=== PATIENT | female | born 1955 | race African-American/Black ===

== ENCOUNTER → 2020-12-04 15:53 | Outpatient (CLI) | payer OTHER, SELFPAY ==
--- NOTE | 2020-12-04 15:57 | DI.RAD.S_ITS ---
PROCEDURE: XR SHOULDER RT MIN 2V INDICATIONS: RIGHT SHOULDER PAIN TECHNIQUE: 3 views of the shoulder were acquired. COMPARISON: None. FINDINGS: Bones: No fractures or dislocations. No suspicious bony lesions. Visualized ribs appear intact. Moderate acromioclavicular and mild glenohumeral joint degeneration. Soft tissues: No suspicious soft tissue calcifications. IMPRESSION: Degenerative joint disease as described. Dictated by: Antonio Cee M.D. on 12/04/2020 at 17:22 Approved by: Antonio Cee M.D. on 12/04/2020 at 17:23
== END ==
PROVIDERS: PCP Registered Nurse; Referring Provider Registered Nurse; Visit Provider Registered Nurse
DX: M25.511 Pain in right shoulder (principal); M19.011 Primary osteoarthritis, right shoulder
CPT/HCPCS: 73030

== ENCOUNTER 2021-06-05 14:04 | Inpatient (IN) | payer MEDICARE, SELFPAY ==
[2021-06-05] VITALS (20 sets, daily range): BP systolic 176–260; BP diastolic 79–125; PULSE 75–89; RESP 14–24; TEMP 35.7–36.7; O2SAT 96–100; BMI 28.1; BMI 27.9
--- NOTE | 2021-06-05 | DI.ECHO.S_ITS ---
[facility] +---------+ : : [address] [place] [address] : : : : [id number] : : : : Phone: [phone]+ Echocardiogram Report + + :Name: DENISE TRAVIS Study Date: 06/06/2021 Height: 67 in : :[facility] ReadingLocation: Weight: 180 lb : : Gender: Female BSA: 1.9 m2 : :: 1955 Age: 65 yrs BP: 218/105 mmHg: :Reason For Study: ACUTE STROKE, ELEVATED TROPONIN : :Ordering Physician: RIC, : :BYRON Performed By: Hellen Ruano : :Referring: BYRON LARIOS : + + Interpretation Summary Left ventricular systolic function is normal with an estimated ejection fraction of 60 to 65% without focal wall motion abnormality. Left ventricular size is normal with moderate concentric LVH and a probable diastolic relaxation abnormality but probable normal filling pressures. The right ventricle appears normal in size and systolic function. Right ventricular systolic pressure is estimated at 29 mmHg with a CVP of 3 mmHg. There is moderate left atrial enlargement. The interatrial septum appears intact without any evidence for an interatrial shunt by Doppler interrogation and injection of saline echo contrast. There is mild tricuspid valve regurgitation but no other functional valvular abnormality. Procedure: A two-dimensional transthoracic echocardiogram with color flow and Doppler was performed. The study quality was technically adequate. There is no prior echocardiogram noted for this patient. A saline contrast injection was performed to assess for cardiac shunting. The injection was performed through an intravenous line in the right arm. The patient was in sinus rhythm with heart rates between 62-71 bpm during the exam. Left Ventricle: The left ventricle is normal in size. There is moderate concentric left ventricular hypertrophy. The ejection fraction is estimated to be 60-65%. Left ventricular systolic function appears normal without focal wall motion abnormalities. Diastolic parameters suggest a relaxation abnormality of the left ventricle, consistent with probable normal filling pressures. Right Ventricle: The right ventricle is normal in size and function. Atria: The left atrium is moderately dilated. Right atrial size is normal. The interatrial septum grossly appears intact with no obvious evidence for an atrial septal defect. Doppler interrogation and injection of saline echo contrast shows no evidence for an interatrial shunt. Bubble study was captured on image frame(s) # 74. Mitral Valve: There is mild to moderate mitral annular calcification. The mitral valve leaflets appear mildly thickened, but open well. There is trace mitral regurgitation. Aortic Valve: The aortic valve is trileaflet. The aortic valve is slightly calcified. The aortic valve opens well. There is no aortic valve stenosis. No aortic regurgitation is present. Tricuspid Valve: The tricuspid valve is normal in structure and function. There is mild tricuspid regurgitation. The right ventricular systolic pressure is estimated to be at least 29 mmHg based on an estimated right atrial pressure of 3 mm Hg. Pulmonic Valve: The pulmonic valve leaflets are thin and pliable; valve motion is normal. There is no pulmonic valvular regurgitation. Great Vessels: The aortic root is normal size. The dimensions of the ascending aorta are normal. The IVC is of normal diameter and collapses greater than 50% with a sniff. This suggests a low right atrial pressure of 3 mm Hg. Pericardium/ Pleura There is no pericardial effusion. There is no pleural effusion. MMode/2D Measurements & Calculations LVIDd: 4.3 cm LVOT diam: 2.0 cm LVIDs: 2.7 cm Ao root diam: 2.9 cm FS: 37.7 % asc Aorta Diam: 3.0 cm IVSd: 1.5 cm Ao Arch Diam (Prox Trans): 2.4 cm LVPWd: 1.4 cm LV tejada. diameter/BSA (cm/m^2): 2.2 LV sys. diameter/BSA (cm/m^2): 1.4 LA A2 area: 24.3 cm2 RA long axis: 4.9 cm LA A4 area: 22.6 cm2 RA area: 15.3 cm2 LA length (vol): 5.6 cm RA vol: 40.6 ml LA vol: 83.5 ml RA : 21.0 ml/m2 LA vol index: 43.2 ml/m2 IVC diam: 1.5 cm RVD1 (basal): 3.2 cm TAPSE: 2.6 cm Doppler Measurements & Calculations Ao V2 max: 142.6 cm/sec LVOT Max Brendon: 97.3 cm/sec Ao V2 mean: 103.8 cm/sec LV V1 max P.8 mmHg Ao max P.1 mmHg LV V1 VTI: 23.8 cm Ao mean P.8 mmHg ABUNDIO(I,D): 2.0 cm2 Ao V2 VTI: 37.9 cm ABUNDIO(V,D): 2.2 cm2 sev ratio: 0.63 ABUNDIO indexed to BSA (cm^2/m^2): 1.0 MV E max brendon: 89.8 cm/sec TR max brendon: 253.0 cm/sec MV A max brendon: 121.9 cm/sec TR max P.6 mmHg MV E/A: 0.74 PA V2 max: 79.6 cm/sec Med Peak E' Brendon: 4.5 cm/sec PA V2 mean: 58.7 cm/sec E/E' med: 20.1 PA mean P.5 mmHg Lat Peak E' Brendon: 5.2 cm/sec PA pr(Accel): 13.9 mmHg E/E' lat: 17.4 E/e' average: 18.7 MV dec time: 0.32 sec SV(LVOT): 75.2 ml Reading Physician:09:14 AM
--- NOTE | 2021-06-05 14:08 | DI.CT.S_ITS ---
PROCEDURE: CT HEAD/BRAIN WO CON INDICATIONS: Left-sided numbness with balance issues TECHNIQUE: Noncontrast 4.5 mm thick angled axial sections acquired from the foramen magnum to the vertex, with coronal and sagittal reformats. For radiation dose reduction, the following was used: automated exposure control, adjustment of mA and/or kV according to patient size. COMPARISON: [facility], CT, CT ANGIO HEAD AND NECK, 06/05/2021, 14:30. FINDINGS: Image quality: Excellent. CSF spaces: Basal cisterns are patent. No extra-axial fluid collections. Ventricles are normal in size and shape. Brain: No midline shift. No intracranial masses or hemorrhage. Figueroa-white matter interface is normal. There is a focus of low attenuation within the right frontal lobe. Skull and face: Calvarium and visualized facial bones are intact, without suspicious lesions. Sinuses: Visualized sinuses demonstrate near complete opacification of the left sphenoid sinus.. IMPRESSION: 1. No acute intracranial process. 2. Focus of low attenuation in the right frontal lobe appearing chronic. This could represent a small focus of early chronic microvascular ischemia, focus of previous infection/inflammation/ischemia, migraine sequela or less likely demyelinating disease. Dictated by: Suzy Adames M.D. on 06/05/2021 at 15:12 Approved by: Suzy Adames M.D. on 06/05/2021 at 15:14
--- NOTE | 2021-06-05 14:12 | DI.CT.S_ITS ---
PROCEDURE: CT ANGIO HEAD AND NECK INDICATIONS: L sided numbness and problems walking TECHNIQUE: After the administration of intravenous contrast, 1 mm thick sections acquired from the aortic arch through the [place]. Post-contrast 4.5 mm thick sections then re-acquired from the foramen magnum to the vertex. 3-dimensional bhjkkcb-[id number]-[id number] (MIP) and/or volume rendering reformats were acquired of the central intracranial vasculature and neck separately. COMPARISON: [facility], CT, CT HEAD/BRAIN WO CON, 06/05/2021, 14:30. FINDINGS: Image quality: Degraded by contrast bolus timing factors. BRAIN: CSF spaces: Ventricles are normal in size and shape. Basal cisterns are patent. No extra-axial fluid collections. Brain: No midline shift. No intracranial bleeds or masses. Figueroa-white matter interface appears intact. Skull and face: Calvarium and facial bones appear intact, without suspicious lesions. Orbits appear normal. Sinuses: Complete opacification of the left sphenoid sinus. Sinuses and mastoids are otherwise clear. HEAD CT ANGIOGRAPHY: Anterior circulation: Intracranial internal carotid arteries are normal in size and flow. The flow within the paired anterior cerebral arteries is normal and symmetric. The flow within the middle cerebral arteries is normal and symmetric. The anterior communicating artery is seen. No aneurysms are seen. Posterior circulation: Visualized portions of the vertebral arteries demonstrate normal caliber, and join to form a normal appearing basilar artery. Flow within the posterior cerebral arteries is normal and symmetric. No aneurysms are seen. NECK CT ANGIOGRAPHY: Carotid system: The great vessels demonstrate a conventional anatomy as they arise from the aortic arch. The origins of the common carotid arteries appear patent. The common carotid arteries demonstrate normal caliber and courses. The bifurcation regions are both widely patent. The internal carotid arteries demonstrate normal calibers and courses. Posterior circulation: The right vertebral artery is small in caliber, but is grossly patent. Left vertebral artery is dominant, and is patent. They join to form a normal appearing basilar artery. Soft tissues: Visualized neck soft tissues demonstrate no suspicious abnormalities. Bones: No suspicious bony lesions. Visualized cervical spine appears normally aligned. IMPRESSION: 1. Limited examination secondary to contrast bolus timing factors. 2. No definite acute process involving the arterial tree of the head and neck. Any quantitative measurements of stenosis were performed using NASCET criteria. Dictated by: Stephen Garcia M.D. on 06/05/2021 at 15:11 Approved by: Stephen Garcia M.D. on 06/05/2021 at 15:14
--- NOTE | 2021-06-05 14:14 | ED.GENADULT ---
HPI - General Adult General Chief complaint: Neuro Symptoms/Deficit Stated complaint: numbness on left side/difficult to walk Time Seen by Provider: 06/05/21 14:06 History of Present Illness HPI narrative: Patient is a 65-year-old female. Approximately 24 hours ago she states she was climbing some stairs in her house. She states that she felt somewhat short of breath. No chest pain. She did have to stop. States that shortly afterwards she was standing at a store. She started to feel tingling in her left hand that then moved up her left arm and then the left side of her face. She also felt very unsteady on her feet. She also had a headache. The headache improved last evening and went to bed without a headache but then had another 1 this morning. She currently does not have a headache. She states that her left side is weak to include her left arm and her left leg. The tingling in the numbness has improved somewhat but the weakness has not. She did not have chest pain. Related Data Home Medications Medication Instructions Recorded Confirmed Novolin 70/30 U-100 Insulin See Rx Instructions .ROUTE .COMPLEX 06/05/21 06/05/21 Previous Rx's Medication Instructions Recorded losartan 50 mg tablet 50 mg PO DAILY #30 tab 12/04/20 Allergies Allergy/AdvReac Type Severity Reaction Status Date / Time Penicillins Allergy Unknown Verified 06/05/21 14:18 Review of Systems Constitutional Constitutional: Reports as per HPI Eyes Eyes: Reports system reviewed and no additional complaints, except as documented ENT Ears, Nose, Mouth, and Throat: Denies sore throat Cardiovascular Cardiovascular: Reports as per HPI Respiratory Respiratory: Reports as per HPI Gastrointestinal Gastrointestinal: Reports system reviewed and no additional complaints, except as documented Genitourinary Genitourinary: Reports system reviewed and no additional complaints, except as documented Musculoskeletal Musculoskeletal: Reports as per HPI Integumentary/Breasts Skin/Breast: Reports system reviewed and no additional complaints, except as documented Neurologic Neurologic: Reports as per HPI Psychiatric Psychiatric: Reports system reviewed and no additional complaints, except as documented Endocrine Endocrine: Reports system reviewed and no additional complaints, except as documented Hematologic/Lymphatic On Anticoagulants: No Allergic/Immunologic Allergic/Immunologic: Reports system reviewed and no additional complaints, except as documented Patient History Medical History Essential hypertension Type 2 diabetes mellitus Social History Smoking Status: Never smoker Smoking Status: Never smoker Exam Initial Vital Signs Initial Vital Signs: Vital Signs Pulse Rate 82 06/05/21 14:19 Respiratory Rate 16 06/05/21 14:19 Pulse Oximetry 100 06/05/21 14:19 Const General: cooperative, comfortable, well developed and well groomed HENMT Head: normal to inspection and normocephalic Nose: external nose normal Mouth: oral mucosae normal Eyes General: appearance normal, both eyes and all related structures EOM: EOM intact bilaterally Chest Chest: normal inspection of the chest Resp Effort & Inspection: normal respiratory effort Auscultation: clear to auscultation bilaterally Cardio Rate: regular rate Rhythm: regular rhythm GI Palpation: soft Back/Spine/Pelvis Back: normal to inspection Skin General: no rashes or lesions noted Neuro General: patient alert, patient awake, patient oriented x3, moves all extremities and not confused Speech: speech normal Extrem General: normal to inspection and capillary refill normal Psych Appearance: grossly normal and well kempt Scores GCS Rienzi coma scale eye opening: Spontaneous [place] coma scale verbal response: Orientated [place] coma scale motor response: Obey commands Rien[place] coma scale total score: 15 NIH Stroke Scale Level of Conciousness: Alert, keenly responsive Ask month/age: Answers both questions correctly. Open/close eyes, close hand: Performs both tasks correctly Best gaze horizontal: Normal Visual sarmiento: No visual loss Facial palsy: Minor paralysis, flattened nasolabial fold, asymmetry on smiling Left arm drift: Drifts down, not to bed Right arm drift: No drift for full 10 sec Left leg drift: Drifts down, not to bed Right leg drift: No drift for full 5 sec Limb ataxia: Present in two limbs Sensory on face/arms/legs: Mild to moderate sensory loss, can tell touch Best language: No aphasia, normal Dysarthria: Normal Extinction or inattention: No abnormality Total NIH Stroke scale score: 6 Course Orders Ordered: ED Orders 06/05/21 14:08 CT head/brain wo con Stat EKG-12 Lead Stat 06/05/21 14:12 CT angio head and neck Stat 06/05/21 14:18 Complete Blood Count AUTO DIFF Stat Comprehensive Metabolic Panel Stat Ethanol (ETOH) Stat Lipase Stat Troponin & CK Cardiac Panel Stat 06/05/21 14:32 EKG-12 Lead Stat 06/05/21 15:09 COVID19 - ADMIT (SAND BOBBER swab/PCR) Stat 06/05/21 15:53 Urine Culture Stat Urine Microscopic Stat Discontinued Medications Aspirin (Aspirin 81 Mg Chew Tab) 324 mg PO NOW ONE Stop: 06/05/21 14:15 Last Admin: 06/05/21 14:27 Dose: 324 mg Documented by: LYNDON Labetalol HCl (Labetalol 20 Mg/4 Ml Syringe) 10 mg IV NOW ONE Stop: 06/05/21 14:37 Last Admin: 06/05/21 14:59 Dose: 10 mg Documented by: LYNDON Vital Signs Vital signs: Vital Signs - 8 hr 06/05/21 14:19 06/05/21 14:30 06/05/21 14:34 Temperature Pulse Rate 82 86 87 Respiratory Rate 16 21 20 Blood Pressure Pulse Oximetry 100 100 100 06/05/21 14:35 06/05/21 14:40 06/05/21 14:59 Temperature 98.1 F Pulse Rate 84 89 Respiratory Rate 24 18 Blood Pressure 242/118 H 260/125 H Pulse Oximetry 98 100 06/05/21 15:00 06/05/21 15:16 06/05/21 15:30 Temperature Pulse Rate 88 82 79 Respiratory Rate 15 19 15 Blood Pressure 234/108 H 208/98 H Pulse Oximetry 100 99 96 06/05/21 16:00 06/05/21 16:01 06/05/21 16:02 Temperature Pulse Rate 76 75 76 Respiratory Rate 17 18 Blood Pressure 181/86 H 181/86 H 176/79 H Pulse Oximetry 99 99 99 Medical Decision Making Medical Records Medical records reviewed: Yes I reviewed the patient's medical records. Lab Data Lab results reviewed: Yes I reviewed the patient's lab results. Result diagrams: 06/05/21 14:18 06/05/21 14:18 Labs: Lab Results 06/05/21 06/05/21 06/05/21 Range/Units 14:18 14:18 15:09 WBC 10.7 (4.5-11.0) X10^3/uL RBC 4.56 (4.0-5.2) X10^6/uL Hgb 13.5 (12.0-16.0) g/dL Hct 41.7 (36-46) % MCV 91.3 (80-100) fL MCH 29.5 (26-34) PG MCHC 32.3 (30-36) % RDW 13.3 (11.6-14.8) % Plt Count 266 (150-400) X10^3/uL Neut % (Auto) 68.4 (50-75) % Lymph % (Auto) 22.9 L (25-40) % Desha % (Auto) 6.1 (3-14) % Eos % (Auto) 2.0 (2-4) % Baso % (Auto) 0.6 (0-2) % Neut # (Auto) 7300 H (8769-2803) /uL Lymph # (Auto) 2400 (4116-4575) /uL Desha # (Auto) 700 (0-900) /uL Eos # (Auto) 200 (0-450) /uL Baso # (Auto) 100 (0-100) /uL Sodium 143 (137-145) mmol/L Potassium 4.1 (3.4-5.1) mmol/L Chloride 109 H (98-107) mmol/L Carbon Dioxide 27 (22-32) mmol/L BUN 21 H (7-17) mg/dL Creatinine 0.99 (0.52-1.04) mg/dL Estimated GFR 56.3 L (>60) mL/min BUN/Creatinine Ratio 21.2 (6-22) Glucose 218 H (80-110) mg/dL Calcium 9.9 (8.4-10.2) mg/dL Total Bilirubin 0.6 (0.2-1.3) mg/dL AST 40 H (14-36) IU/L ALT 29 (<35) IU/L Alkaline Phosphatase 203 H (38-126) U/L Total Creatine Kinase 160 H (30-135) U/L CK-MB (CK-2) 2.33 (<2.37) ng/mL CK-MB (CK-2) Rel Index 1.5 (1.5-5.0) % Troponin I 0.529 H* (0.01-0.034) ng/mL Total Protein 7.9 (6.3-8.2) g/dL Albumin 4.4 (3.5-5.0) g/dL Globulin 3.5 (1.7-4.1) g/dL Albumin/Globulin Ratio 1.3 (1.0-2.8) Lipase 54 (23-300) U/L Urine RBC (0-5/HPF) Urine WBC (0-5/HPF) Ur Squamous Epith Cells (0-5/HPF) Urine Bacteria (None) Ur Culture Indicated? Ethyl Alcohol < 10 ( - 10) mg/dL SARS-CoV-2 (PCR) Negative (Negative) 06/05/21 Range/Units 15:53 WBC (4.5-11.0) X10^3/uL RBC (4.0-5.2) X10^6/uL Hgb (12.0-16.0) g/dL Hct (36-46) % MCV (80-100) fL MCH (26-34) PG MCHC (30-36) % RDW (11.6-14.8) % Plt Count (150-400) X10^3/uL Neut % (Auto) (50-75) % Lymph % (Auto) (25-40) % Desha % (Auto) (3-14) % Eos % (Auto) (2-4) % Baso % (Auto) (0-2) % Neut # (Auto) (0556-4859) /uL Lymph # (Auto) (1292-6067) /uL Desha # (Auto) (0-900) /uL Eos # (Auto) (0-450) /uL Baso # (Auto) (0-100) /uL Sodium (137-145) mmol/L Potassium (3.4-5.1) mmol/L Chloride (98-107) mmol/L Carbon Dioxide (22-32) mmol/L BUN (7-17) mg/dL Creatinine (0.52-1.04) mg/dL Estimated GFR (>60) mL/min BUN/Creatinine Ratio (6-22) Glucose (80-110) mg/dL Calcium (8.4-10.2) mg/dL Total Bilirubin (0.2-1.3) mg/dL AST (14-36) IU/L ALT (<35) IU/L Alkaline Phosphatase (38-126) U/L Total Creatine Kinase (30-135) U/L CK-MB (CK-2) (<2.37) ng/mL CK-MB (CK-2) Rel Index (1.5-5.0) % Troponin I (0.01-0.034) ng/mL Total Protein (6.3-8.2) g/dL Albumin (3.5-5.0) g/dL Globulin (1.7-4.1) g/dL Albumin/Globulin Ratio (1.0-2.8) Lipase (23-300) U/L Urine RBC 1-5/hpf (0-5/HPF) Urine WBC 1-5/hpf (0-5/HPF) Ur Squamous Epith Cells 1-5 /hpf (0-5/HPF) Urine Bacteria Many (>30) H (None) Ur Culture Indicated? Culture not indicate Ethyl Alcohol ( - 10) mg/dL SARS-CoV-2 (PCR) (Negative) Point of Care Testing Glucose POC 217 Urine Dip Bedside Urine Glucose 100 mg/dl Bedside Urine Bilirubin - Negative Bedside Urine Ketone - Negative Urine Specific [place] 1.015 Bedside Urine Occult Blood +/- Bedside Urine pH 6.5 Bedside Urine Protein +/- 15 Bedside Urine Urobilinogen - Negative Bedside Urine Nitrite - Negative Bedside Urine Leukocytes - Negative Esterase Point of care testing: Point of Care Testing Glucose POC 217 Urine Dip Bedside Urine Glucose 100 mg/dl Bedside Urine Bilirubin - Negative Bedside Urine Ketone - Negative Urine Specific [place] 1.015 Bedside Urine Occult Blood +/- Bedside Urine pH 6.5 Bedside Urine Protein +/- 15 Bedside Urine Urobilinogen - Negative Bedside Urine Nitrite - Negative Bedside Urine Leukocytes - Negative Esterase Imaging Data CT scan - head: Radiologist's Impression: [address] [id number] Scan ReportSigned Patient: Rosanna Barlow LMR#: [id number]: 5Acct:[id number]/Sex: 65 / FDate of Service: 06/05/21Loc: EDAccession Number: [id number] Procedure: CT head/brain wo con Ordering Provider: Rafi Simon D.O. PROCEDURE: CT HEAD/BRAIN WO CON INDICATIONS: Left-sided numbness with balance issues TECHNIQUE: Noncontrast 4.5 mm thick angled axial sections acquired from the foramen magnum to the vertex, with coronal and sagittal reformats. For radiation dose reduction, the following was used: automated exposure control, adjustment of mA and/or kV according to patient size. COMPARISON: [facility], CT, CT ANGIO HEAD AND NECK, 06/05/2021, 14:30. FINDINGS: Image quality: Excellent. CSF spaces: Basal cisterns are patent. No extra-axial fluid collections. Ventricles are normal in size and shape. Brain: No midline shift. No intracranial masses or hemorrhage. Figueroa-white matter interface is normal. There is a focus of low attenuation within the right frontal lobe. Skull and face: Calvarium and visualized facial bones are intact, without suspicious lesions. Sinuses: Visualized sinuses demonstrate near complete opacification of the left sphenoid sinus.. IMPRESSION: 1. No acute intracranial process. 2. Focus of low attenuation in the right frontal lobe appearing chronic. This could represent a small focus of early chronic microvascular ischemia, focus of previous infection/inflammation/ischemia, migraine sequela or less likely demyelinating disease. Dictated by: Suzy Adames M.D. on 06/05/2021 at 15:12 Approved by: Suzy Adames M.D. on 06/05/2021 at 15:14 CTA - brain/neck: Radiologist's Impression: [address] [id number] Scan ReportSigned Patient: Rosanna Barlow LMR#: [id number]: 5Acct:[id number]/Sex: 65 / FDate of Service: 06/05/21Loc: EDAccession Number: [id number] Procedure: CT angio head and neck Ordering Provider: Rafi Simon D.O. PROCEDURE: CT ANGIO HEAD AND NECK INDICATIONS: L sided numbness and problems walking TECHNIQUE: After the administration of intravenous contrast, 1 mm thick sections acquired from the aortic arch through the [place]. Post-contrast 4.5 mm thick sections then re-acquired from the foramen magnum to the vertex. 3-dimensional dyebwwq-grfyaxgqy-fhfuwtaiax (MIP) and/or volume rendering reformats were acquired of the central intracranial vasculature and neck separately. COMPARISON: [facility], CT, CT HEAD/BRAIN WO CON, 06/05/2021, 14:30. FINDINGS: Image quality: Degraded by contrast bolus timing factors. BRAIN: CSF spaces: Ventricles are normal in size and shape. Basal cisterns are patent. No extra-axial fluid collections. Brain: No midline shift. No intracranial bleeds or masses. Figueroa-white matter interface appears intact. Skull and face: Calvarium and facial bones appear intact, without suspicious lesions. Orbits appear normal. Sinuses: Complete opacification of the left sphenoid sinus. Sinuses and mastoids are otherwise clear. HEAD CT ANGIOGRAPHY: Anterior circulation: Intracranial internal carotid arteries are normal in size and flow. The flow within the paired anterior cerebral arteries is normal and symmetric. The flow within the middle cerebral arteries is normal and symmetric. The anterior communicating artery is seen. No aneurysms are seen. Posterior circulation: Visualized portions of the vertebral arteries demonstrate normal caliber, and join to form a normal appearing basilar artery. Flow within the posterior cerebral arteries is normal and symmetric. No aneurysms are seen. NECK CT ANGIOGRAPHY: Carotid system: The great vessels demonstrate a conventional anatomy as they arise from the aortic arch. The origins of the common carotid arteries appear patent. The common carotid arteries demonstrate normal caliber and courses. The bifurcation regions are both widely patent. The internal carotid arteries demonstrate normal calibers and courses. Posterior circulation: The right vertebral artery is small in caliber, but is grossly patent. Left vertebral artery is dominant, and is patent. They join to form a normal appearing basilar artery. Soft tissues: Visualized neck soft tissues demonstrate no suspicious abnormalities. Bones: No suspicious bony lesions. Visualized cervical spine appears normally aligned. IMPRESSION: 1. Limited examination secondary to contrast bolus timing factors. 2. No definite acute process involving the arterial tree of the head and neck. Any quantitative measurements of stenosis were performed using NASCET criteria. Dictated by: Stephen Garcia M.D. on 06/05/2021 at 15:11 Approved by: Stephen Garcia M.D. on 06/05/2021 at 15:14 ECG Data Attestation: I personally reviewed and interpreted this ECG as follows: Interpretation: Sinus rhythm Ventricular rate is 78 LVH Normal axis Normal QRS QTC [address] T wave changes Patient developed chest pain in the ER Subsequent EKG Sinus rhythm Ventricular rate is 79 Normal axis Normal QRS Normal QTC Nonspecific ST T wave changes MDM Narrative Medical decision making narrative: Patient presents to the emergency department at 24 hours after the onset of her symptoms. She is outside the window for tPA. Is outside the window for any code IR. Her physical exam and CT scan today are consistent with a CVA. She was given aspirin. She was very hypertensive upon arrival. She was given 10 mg of labetalol which did improve her blood pressure however this did start to creep back up. The admitting provider was advised of this and she will address at upon arrival to the floor. Patient's head CT was read is unremarkable. I did discuss the case with tele stroke who upon reviewing the CT scan stated that he thought that potentially there was a right frontal/temporal lobe infarct that would explain the patient's symptoms today. Patient did have 1 episode of chest pain here in the ER. Initial EKG and a repeat EKG showed nonspecific changes. I did discuss this with tele stroke as well. He stated that there was not a contraindication to heparin in this individual if she needed it for another reason however there was some concern about a potential hemorrhagic conversion. I then discussed the case with Dr. soto with Cardiology. He stated that she has other presenting issues that can cause her troponin to be elevated, her elevated blood pressure, her stroke which can cause the inverted T-waves and her other presentation. Given the risk of potential hemorrhagic conversion, the lack of definitive findings consistent with ACS and the presence of conditions that could cause her symptoms we will hold on heparin for now. I did discuss the case with Dr. boyd who was on-call for Internal Medicine. Will admit for further evaluation and treatment. Discuss this admission with the patient. She expressed understanding and agreement. Critical Care Time Critical Care Time Critical Care Time: Yes Total Critical Care Time: 40 Attestation: The high probability of a clinically significant, sudden or life threatening deterioration of the cardiovascular, neurologic system(s) required my full and direct attention, intervention and personal management. The aggregate critical care time was 40 minutes. This time is in addition to time spent performing reported procedures but includes the following: [x] Data Review and interpretation [x] Patient assessment and monitoring of vital signs [x] Documentation [x] Medication orders and management Discharge Plan Departure Patient Disposition: Admitted As Inpatient Clinical Impression: Cerebrovascular accident, Elevated troponin, Hypertension, Hyperglycemia Admit Date/Time: 06/05/21 16:16 Admit Provider: Mara Boyd
[2021-06-05 14:27] LABS: Add Manual Diff / Slide Review NO; Basophils Absolute Auto 100 /uL (0-100); Basophils Percent Auto 0.6 % (0-2); Eosinophils Absolute Auto 200 /uL (0-450); Hematocrit 41.7 % (36-46); Hemoglobin 13.5 g/dL (12.0-16.0); Lymphocytes Absolute Auto 2400 /uL (1100-4500); Lymphocytes Percent Auto 22.9 % (25-40); Mean Corpuscular HGB Conc 32.3 % (30-36); Mean Corpuscular Hemoglobin 29.5 PG (26-34); Mean Corpuscular Volume 91.3 fL (80-100); Monocytes Absolute Auto 700 /uL (0-900); Monocytes Percent Auto 6.1 % (3-14); Neutrophils Absolute Auto 7300 /uL (1500-7000); Neutrophils Percent Auto 68.4 % (50-75); Platelet Count 266 X10^3/uL (150-400); Red Blood Cell Count 4.56 X10^6/uL (4.0-5.2); Red Cell Distribution Width 13.3 % (11.6-14.8); White Blood Cell Count 10.7 X10^3/uL (4.5-11.0)
[2021-06-05] MEDS: ASPIRIN 81 MG CHEW TAB 324 MG PO (14:27)
[2021-06-05 14:46] LABS: Alanine Aminotransferase 29 IU/L (<35); Albumin 4.4 g/dL (3.5-5.0); Albumin Globulin Ratio 1.3 (1.0-2.8); Alkaline Phosphatase 203 U/L (38-126); Aspartate Aminotransferase 40 IU/L (14-36); BUN Creatinine Ratio 21.2 (6-22); Bilirubin Total 0.6 mg/dL (0.2-1.3); Blood Urea Nitrogen 21 mg/dL (7-17); Calcium 9.9 mg/dL (8.4-10.2); Carbon Dioxide 27 mmol/L (22-32); Chloride 109 mmol/L (98-107); Creatine Kinase 160 U/L (30-135); Estimated Glomerular Filt Rate 56.3 mL/min (>60); Ethanol (ETOH) < 10 mg/dL; Globulin 3.5 g/dL (1.7-4.1); Glucose 218 mg/dL (80-110); Lipase 54 U/L (23-300); Potassium 4.1 mmol/L (3.4-5.1); Sodium 143 mmol/L (137-145); Total Protein 7.9 g/dL (6.3-8.2)
[2021-06-05 14:49] LABS: HEMOLYSIS 80 (0-50)
[2021-06-05] MEDS: LABETALOL 20 MG/4 ML SYRINGE 10 MG IV (14:59)
[2021-06-05 15:00] LABS: CKMB % Relative Index 1.5 % (1.5-5.0); Creatine Kinase MB 2.33 ng/mL (<2.37)
[2021-06-05 15:19] LABS: Troponin I 0.529 ng/mL (0.01-0.034)
[2021-06-05 16:07] LABS: COVID19 - ADMIT (NP swab/PCR) Negative (Negative)
[2021-06-05 16:14] LABS: RBC Urine 1-5/HPF (0-5/HPF)
[2021-06-05 16:15] LABS: Bacteria Urine Many (>30); Squamous Epithelial Cell Urine 1-5 /HPF (0-5/HPF); WBC Urine 1-5/HPF (0-5/HPF)
--- NOTE | 2021-06-05 17:57 | PM.HP.1 ---
History of Present Illness History of Present Illness Chief complaint: numbness on left side/difficult to walk Narrative: The patient is a 65-year-old female with a history of hypertension, type 2 diabetes, who was in her usual state of health until yesterday. She was going to work and noted being short of breath. The patient then noted left-sided numbness, she had numbness from her left arm up to her face, she then got up from a meeting in noted that her left leg was weak. The patient went home was not feeling well in her encouraged her to come to the hospital. She had no headache but does report some blurred vision, she had no slurred speech, no facial droop. The patient does report having substernal chest pain yesterday. She described a feeling like she had heartburn, the pain lasted about 30 minutes and then resolved. He had recurrent symptoms today which lasted about 10 minutes. It did not radiate, she had known nausea or diaphoresis. Patient does report she was somewhat lightheaded earlier but since then that has resolved. Patient was seen and evaluated in the emergency room. At the time of admission her blood pressure was 260 systolic, in addition she was found to have a troponin elevated at 0.529, EKG was unremarkable. In addition the patient had a NIH stroke scale score of 6. Her initial head CT was negative for an acute bleed. Patient was admitted to the hospital for an acute ischemic stroke. The patient currently is pain free. She continues to have numbness on the left side, but no other lateralizing neurological symptoms. Patient History Medical History Essential hypertension Type 2 diabetes mellitus Family & Social History Family History (Updated 06/05/21 @ 18:00 by Mara Boyd MD) Mother Cancer Father Cardiac arrest Safety & Behavioral: Feels Safe in Current Yes Environment Tobacco & Substance use: Smoking Status Never smoker alcohol intake frequency 0-2 drinks per day Substance Use Type does not use Meds Home Medications and Allergies Home Medications Medication Instructions Recorded Confirmed Type losartan 50 mg tablet 50 mg PO DAILY #30 tab 12/04/20 06/05/21 Rx Novolin 70/30 U-100 Insulin See Rx Instructions .ROUTE .COMPLEX 06/05/21 06/05/21 History Allergies Allergy/AdvReac Type Severity Reaction Status Date / Time Penicillins Allergy Unknown Verified 06/05/21 14:18 Review of Systems Review of Systems Narrative: 10 point review of systems is negative except as described above Exam Vital Signs (past 8 hours): - 06/05/21 14:19 06/05/21 14:30 06/05/21 14:34 Temperature Pulse Rate 82 86 87 Respiratory Rate 16 21 20 Blood Pressure Pulse Oximetry 100 100 100 06/05/21 14:35 06/05/21 14:40 06/05/21 14:59 Temperature 98.1 F Pulse Rate 84 89 Respiratory Rate 24 18 Blood Pressure 242/118 H 260/125 H Pulse Oximetry 98 100 06/05/21 15:00 06/05/21 15:16 06/05/21 15:30 Temperature Pulse Rate 88 82 79 Respiratory Rate 15 19 15 Blood Pressure 234/108 H 208/98 H Pulse Oximetry 100 99 96 06/05/21 16:00 06/05/21 16:01 06/05/21 16:02 Temperature Pulse Rate 76 75 76 Respiratory Rate 17 18 Blood Pressure 181/86 H 181/86 H 176/79 H Pulse Oximetry 99 99 99 06/05/21 16:30 06/05/21 16:37 06/05/21 16:44 Temperature Pulse Rate 77 78 77 Respiratory Rate 14 22 20 Blood Pressure 236/107 H 230/105 H Pulse Oximetry 99 99 99 Narrative Exam Narrative: Pleasant female lying in bed in no obvious distress, patient speaking in full sentences, no facial droop noted [facility] Other: HEENT: Normocephalic atraumatic, extraocular muscles are intact, oropharynx is clear, neck is supple, there is no adenopathy thyromegaly or carotid bruits Patient has normal dentition, she has moist mucous membranes Eyes Other: Extraocular muscles are intact, sclerae anicteric Neck Other: Neck is supple without thyromegaly, adenopathy, or carotid bruits Resp Other: Lungs: Clear to auscultation Cardio Other: Cardiac exam: Regular rate and rhythm normal S1-S2 with a 2/6 systolic ejection murmur GI Other: Abdomen: Soft nontender nondistended no hepatosplenomegaly Skin Other: Right upper extremities: Erythema, some abrasions over the right deltoid Neuro Other: Patient is awake and alert and answers questions appropriately. She is alert and responsive, she is able to state her age and month. Patient is able to blink eyes and squeeze hands, her extraocular moves muscle movement are intact, she has no visual field deficit, the patient has no facial asymmetry in no facial palsy. Her left arm is weaker than the right, would give her 1+ as it drips but does not hit the bed, right arm is strong, left leg same thing 1+, right leg 0, sensation she has decreased sensation over the left arm and left leg 1 point language, normal no aphasia, dysarthria, normal no dysarthria, extinction inattention, is 0 patient's NIH stroke scale score is 3 Extrem Other: No edema Psych Other: Patient's mood and affect is appropriate, she is clear thought process, no hallucinations, no delusions Objective ECG Impression: Normal sinus rhythm with nonspecific ST T wave abnormality Labs Result Diagrams: 06/05/21 14:18 06/05/21 14:18 Labs: Laboratory Results - last 24 hr 06/05/21 06/05/21 06/05/21 14:18 14:18 15:09 WBC 10.7 RBC 4.56 Hgb 13.5 Hct 41.7 MCV 91.3 MCH 29.5 MCHC 32.3 RDW 13.3 Plt Count 266 Neut % (Auto) 68.4 Lymph % (Auto) 22.9 L Aiken % (Auto) 6.1 Eos % (Auto) 2.0 Baso % (Auto) 0.6 Neut # (Auto) 7300 H Lymph # (Auto) 2400 Aiken # (Auto) 700 Eos # (Auto) 200 Baso # (Auto) 100 Sodium 143 Potassium 4.1 Chloride 109 H Carbon Dioxide 27 BUN 21 H Creatinine 0.99 Estimated GFR 56.3 L BUN/Creatinine Ratio 21.2 Glucose 218 H Calcium 9.9 Total Bilirubin 0.6 AST 40 H ALT 29 Alkaline Phosphatase 203 H Total Creatine Kinase 160 H CK-MB (CK-2) 2.33 CK-MB (CK-2) Rel Index 1.5 Troponin I 0.529 H* Total Protein 7.9 Albumin 4.4 Globulin 3.5 Albumin/Globulin Ratio 1.3 Lipase 54 Urine RBC Urine WBC Ur Squamous Epith Cells Urine Bacteria Ur Culture Indicated? Ethyl Alcohol < 10 SARS-CoV-2 (PCR) Negative 06/05/21 15:53 WBC RBC Hgb Hct MCV MCH MCHC RDW Plt Count Neut % (Auto) Lymph % (Auto) Aiken % (Auto) Eos % (Auto) Baso % (Auto) Neut # (Auto) Lymph # (Auto) Aiken # (Auto) Eos # (Auto) Baso # (Auto) Sodium Potassium Chloride Carbon Dioxide BUN Creatinine Estimated GFR BUN/Creatinine Ratio Glucose Calcium Total Bilirubin AST ALT Alkaline Phosphatase Total Creatine Kinase CK-MB (CK-2) CK-MB (CK-2) Rel Index Troponin I Total Protein Albumin Globulin Albumin/Globulin Ratio Lipase Urine RBC 1-5/hpf Urine WBC 1-5/hpf Ur Squamous Epith Cells 1-5 /hpf Urine Bacteria Many (>30) H Ur Culture Indicated? Culture not indicate Ethyl Alcohol SARS-CoV-2 (PCR) Assessment & Plan Assessment & Plan narrative: Impression 1. 65-year-old female with a history of hypertension, type 2 diabetes admitted to the hospital with left sided weakness, left-sided numbness, NIH stroke scale score of 3-6, here for probable acute ischemic stroke -head CT in the emergency department - No acute intracranial process. 2. Focus of low attenuation in the right frontal lobe appearing chronic. This could represent a small focus of early chronic microvascular ischemia, focus of previous infection/inflammation/ischemia, migraine sequela or less likely demyelinating disease - Limited examination secondary to contrast bolus timing factors. 2. No definite acute process involving the arterial tree of the head and neck -patient's NIH stroke scale score of 6 earlier now 3 suggest probable acute ischemic event -patient was markedly hypertensive on admission, that coupled with her type 2 diabetes, makes ischemic stroke highly likely -patient received aspirin in the emergency department, she will be started on a statin this evening, will hold Plavix at this time -will obtain MRI of the brain tomorrow, and cardiac echo to look for embolic focus, patient will continue on telemetry this evening looking for atrial fibrillation -will obtain PT OT and speech consultation patient has no facial weakness, will start ADA diet this evening 2 non STEMI versus type 2 myocardial infarction -patient reports chest pain, prior to admission -initial troponin elevated at 0.529 -12 lead EKG reveals sinus rhythm with nonspecific ST T wave abnormality -given patient's complaint of chest pain, risk factors, elevated troponin she will be feet treated for a NSTEMI at this time -will start IV heparin, continue aspirin, start low-dose beta-elizabeth -will obtain cardiac echo, if the patient is found to have new wall motion abnormalities consider transfer for cardiac catheterization -if echo reveals no wall motion abnormalities will obtain stress test prior to discharge 3. Hypertension -patient likely hypertensive related to her acute stroke, will allow for permissive hypertension -blood pressure goal is to keep systolic blood pressure less than 220 systolic and less than 120 diastolic -will start beta-elizabeth this evening given recent NSTEMI will hold her losartan this evening and treat blood pressure greater than 220/120 with IV labetalol 4. Type 2 diabetes -patient reports she takes a sliding scale of 70 30 twice daily -will start her on 30 units of Lantus this evening with pre meal lispro, will obtain glycohemoglobin and fasting lipid profile 5. Patient is on IV heparin and therefore will not need DVT prophylaxis, Patient indicates she is a full code will note that her record accordingly, her Garrett it is her surrogate decision maker I have utilized all available immediate resources to obtain update and review the patient's current medication
[2021-06-05 18:10] LABS: PTT Partial Thromboplastin Tim 32 SECONDS (26.4-36.2)
[2021-06-05] MEDS: INSULIN LISPRO 100 UNIT/ML 3ML VIAL SUBCUT ×2 (18:26→21:32)
[2021-06-05] MEDS: HEPARIN DRIP 25,000 UNIT/500 ML IV.SOLN 19.595 UNIT IV (18:35)
[2021-06-05] MEDS: ACETAMINOPHEN 325 MG TABLET 650 MG PO (18:50)
[2021-06-05 20:01] LABS: Hemoglobin 12.4 g/dL (12.0-16.0)
[2021-06-05 20:08] LABS: PTT Partial Thromboplastin Tim 35 SECONDS (26.4-36.2)
[2021-06-05 20:21] LABS: Hemoglobin A1C% w Est Avg Glu 10.1 % (4.0-6.0)
[2021-06-05 20:43] LABS: Troponin I 0.354 ng/mL (0.01-0.034)
[2021-06-05 20:48] LABS: Thyroid Stimulating Hormone 1.32 uIU/mL (0.47-4.68)
[2021-06-05] MEDS: INSULIN GLARGINE 100 UNIT/ML 3ML PEN 30 UNIT SUBCUT (21:33)
[2021-06-05] MEDS: METOPROLOL ER 25 MG TABLET PO (21:34)
[2021-06-05] MEDS: ATORVASTATIN 20 MG TABLET 80 MG PO (21:35)
[2021-06-06] VITALS (12 sets, daily range): BP systolic 163–217; BP diastolic 80–118; PULSE 66–78; RESP 16–17; TEMP 36.2–36.9; O2SAT 95–98
[2021-06-06] MEDS: ACETAMINOPHEN 325 MG TABLET 650 MG PO ×3 (00:41→18:11)
[2021-06-06 03:43] LABS: PTT Partial Thromboplastin Tim 48 SECONDS (26.4-36.2)
[2021-06-06] MEDS: HEPARIN 5,000 UNIT/ML VIAL 5000 UNIT IV (03:55)
--- NOTE | 2021-06-06 07:00 | DI.MRI.S_ITS ---
PROCEDURE: MR HEAD/BRAIN WO CON INDICATIONS: Previously given history of left-sided numbness and problems walking, clinical concern for stroke TECHNIQUE: This study was originally ordered as a stroke protocol. However, the patient could not tolerate the entire examination even with premedication and a noncontrast MRI was performed. Non-contrast axial T1 spin echo, axial T2 fast spin echo, sagittal and axial FLAIR, coronal T2 fast spin echo, axial gradient echo, axial diffusion and ADC through the brain. COMPARISON: [facility], CT, CT HEAD/BRAIN WO CON, 06/05/2021, 14:30. [facility], CT, CT ANGIO HEAD AND NECK, 06/05/2021, 14:30. FINDINGS: Image quality: Excellent. CSF spaces: Ventricles appear symmetric in size and shape. Basal cisterns are patent. No extra-axial fluid collections. Brain: There is a focus of abnormal diffusion-weighted signal seen within the posterior superior right frontal lobe. There is associated dark signal seen on the ADC map. There is developing T2 weighted signal seen within this region. No intracranial bleeds or mass effects. There is cerebral volume loss for age. There are periventricular and deep white matter chronic small vessel ischemic changes. Brainstem appears normal. No chronic ischemic insults. Normal intravascular flow voids are present. Note is made of a cavum septum pellucidum. When discovered in isolation, this is considered to be a developmental variant of no clinical consequence. Skull and face: Calvarial bone marrow is normal in signal. Orbits are normal. Sinuses: Sinuses and mastoids are clear. IMPRESSION: Focus of subacute infarction seen involving the posterior aspect of the right frontal lobe. Dictated by: Federico White M.D. on 06/06/2021 at 10:27 Approved by: Federico White M.D. on 06/06/2021 at 10:31
[2021-06-06 07:38] LABS: Hematocrit 36.4 % (36-46); Hemoglobin 11.9 g/dL (12.0-16.0)
[2021-06-06 07:52] LABS: Cholesterol 193 mg/dL (140-199); HDL Cholesterol 71 mg/dL (40-60); LDL Cholesterol Calculated 112 mg/dL (<100); Triglycerides 48 mg/dL (35-150)
[2021-06-06 08:11] LABS: Troponin I 0.289 ng/mL (0.01-0.034)
[2021-06-06] MEDS: METOPROLOL ER 25 MG TABLET PO ×2 (08:25→21:06)
[2021-06-06] MEDS: LOSARTAN 50 MG TABLET PO (08:25)
[2021-06-06] MEDS: ASPIRIN EC 81 MG TABLET PO (08:25)
[2021-06-06] MEDS: INSULIN LISPRO 100 UNIT/ML 3ML VIAL SUBCUT ×4 (08:26→21:07)
[2021-06-06] MEDS: LORazepam 1 MG TABLET PO (09:47)
--- NOTE | 2021-06-06 10:45 | OT.IPNOTE ---
Hold therapy as pt to get an ECHO first, and pending results may need to be transferred out. Check on pt tomorrow if still here for OT eval.
[2021-06-06 10:54] LABS: PTT Partial Thromboplastin Tim 134 SECONDS (26.4-36.2)
[2021-06-06] MEDS: LOSARTAN 50 MG TABLET 100 MG PO (13:03)
--- NOTE | 2021-06-06 13:28 | PT-IP ANOTE ---
PT on hold. pt continues to have increase BP. 205/107 this morning per nurse and BP meds were given. checked pt again and pt continues to have high BP: 168/100 despite BP meds. will f/u
--- NOTE | 2021-06-06 14:58 | PM.PN.1 ---
Subjective Subjective Interval history: The patient is a 65-year-old female with a history of hypertension type 2 diabetes who was admitted to the hospital for an acute CVA. Patient reports numbness on the left side of her face and arm has improved. She has had no further chest pain today. She remains hypertensive, however blood pressures are improving with current treatment Exam Vital Signs (past 8 hours): - 06/06/21 08:08 06/06/21 08:25 06/06/21 10:25 Temperature 97.2 F L Pulse Rate 68 66 69 Respiratory Rate 16 Blood Pressure 202/101 H 202/101 H 207/100 H Pulse Oximetry 95 06/06/21 10:28 06/06/21 11:52 06/06/21 13:03 Temperature 97.8 F Pulse Rate 69 67 Respiratory Rate 16 Blood Pressure 205/107 H 168/100 H 168/100 H Pulse Oximetry 96 Oxygen Delivery Method Room Air Oxygen Flow Rate 0 Narrative Exam Narrative: Pleasant female in no acute distress Resp Other: Lungs clear to auscultation Cardio Other: Cardiac exam: Regular rate and rhythm normal S1-S2 with a 2/6 systolic ejection murmur GI Other: Abdomen abdomen: Soft nontender nondistended Neuro Other: Nonfocal neuro exam, patient has some minimal numbness on the left side of her face arm and leg, she has a small drift of the left arm Objective ECG Impression: Echo findings:Left ventricular systolic function is normal with an estimated ejection fraction of 60 to 65% without focal wall motion abnormality. Left ventricular size is normal with moderate concentric LVH and a probable diastolic relaxation abnormality but probable normal filling pressures. The right ventricle appears normal in size and systolic function. Right ventricular systolic pressure is estimated at 29 mmHg with a CVP of 3 mmHg. There is moderate left atrial enlargement. The interatrial septum appears intact without any evidence for an interatrial shunt by Doppler interrogation and injection of saline echo contrast. There is mild tricuspid valve regurgitation but no other functional valvular abnormality. Imaging MRI - head: My impression: MRI of the brain, reveals a diffusion abnormality involving the right frontoparietal lobe consistent with acute ischemia Radiologist's impression: Focus of subacute infarction seen involving the posterior aspect of the right frontal lobe. Labs Result Diagrams: 06/06/21 06:55 06/05/21 14:18 Labs: Laboratory Results - last 24 hr 06/05/21 06/05/21 06/05/21 14:18 14:18 15:09 Hgb Hct APTT 32 Hemoglobin A1c CK-MB (CK-2) 2.33 CK-MB (CK-2) Rel Index 1.5 Troponin I 0.529 H* Triglycerides Cholesterol LDL Cholesterol, Calc HDL Cholesterol TSH Urine RBC Urine WBC Ur Squamous Epith Cells Urine Bacteria Ur Culture Indicated? SARS-CoV-2 (PCR) Negative 06/05/21 06/05/21 06/05/21 15:53 19:52 19:52 Hgb Hct APTT Hemoglobin A1c 10.1 H CK-MB (CK-2) CK-MB (CK-2) Rel Index Troponin I Triglycerides Cholesterol LDL Cholesterol, Calc HDL Cholesterol TSH 1.32 Urine RBC 1-5/hpf Urine WBC 1-5/hpf Ur Squamous Epith Cells 1-5 /hpf Urine Bacteria Many (>30) H Ur Culture Indicated? Culture not indicate SARS-CoV-2 (PCR) 06/05/21 06/05/21 06/05/21 19:52 19:52 19:52 Hgb 12.4 Hct 39.0 APTT 35 Hemoglobin A1c CK-MB (CK-2) CK-MB (CK-2) Rel Index Troponin I 0.354 H* Triglycerides Cholesterol LDL Cholesterol, Calc HDL Cholesterol TSH Urine RBC Urine WBC Ur Squamous Epith Cells Urine Bacteria Ur Culture Indicated? SARS-CoV-2 (PCR) 06/06/21 06/06/21 06/06/21 03:12 06:55 06:55 Hgb 11.9 L Hct 36.4 APTT 48 H D Hemoglobin A1c CK-MB (CK-2) CK-MB (CK-2) Rel Index Troponin I Triglycerides 48 Cholesterol 193 LDL Cholesterol, Calc 112 H HDL Cholesterol 71 H TSH Urine RBC Urine WBC Ur Squamous Epith Cells Urine Bacteria Ur Culture Indicated? SARS-CoV-2 (PCR) 06/06/21 06/06/21 06/06/21 06:55 06:55 10:15 Hgb Hct APTT Cancelled 134 H* D Hemoglobin A1c CK-MB (CK-2) CK-MB (CK-2) Rel Index Troponin I 0.289 H* Triglycerides Cholesterol LDL Cholesterol, Calc HDL Cholesterol TSH Urine RBC Urine WBC Ur Squamous Epith Cells Urine Bacteria Ur Culture Indicated? SARS-CoV-2 (PCR) [facility] Medical History Essential hypertension Type 2 diabetes mellitus Family History (Updated 06/05/21 @ 18:00 by Mara Boyd MD) Mother Cancer Father Cardiac arrest Social History household members: spouse Smoking Status: Never smoker Assessment & Plan Assessment & Plan narrative: 5-year-old female with a history of hypertension, type 2 diabetes admitted to the hospital with left sided weakness, left-sided numbness, NIH stroke scale score of 3-6, here for probable acute ischemic stroke -head CT in the emergency department - No acute intracranial process. 2. Focus of low attenuation in the right frontal lobe appearing chronic. This could represent a small focus of early chronic microvascular ischemia, focus of previous infection/inflammation/ischemia, migraine sequela or less likely demyelinating disease - Limited examination secondary to contrast bolus timing factors. 2. No definite acute process involving the arterial tree of the head and neck -patient's NIH stroke scale score of 6 earlier now 3 suggest probable acute ischemic event -patient was markedly hypertensive on admission, that coupled with her type 2 diabetes, makes ischemic stroke highly likely -patient received aspirin in the emergency department, she will be started on a statin this evening, will hold Plavix at this time -brain MRI confirmed subacute infarct involving the posterior aspect of the right frontal lobe -echo reveals no wall motion abnormalities, no embolic focus,No shunts are noted -patient will continue on aspirin, statin, losartan for blood pressure 2 non STEMI versus type 2 myocardial infarction -patient reports chest pain, prior to admission -initial troponin elevated at 0.529 -12 lead EKG reveals sinus rhythm with nonspecific ST T wave abnormality -given patient's complaint of chest pain, risk factors, elevated troponin she will be feet treated for a NSTEMI at this time -will start IV heparin, continue aspirin, start low-dose beta-elizabeth -echocardiogram reveals no wall motion abnormalities -continue IV heparin for 48 hours total, continue aspirin, continue beta-elizabeth, once patient is off the IV heparin will initiate Plavix 75 mg daily 3. Hypertension -patient likely hypertensive related to her acute stroke, will allow for permissive hypertension -blood pressure goal is to keep systolic blood pressure less than 220 systolic and less than 120 diastolic -will start beta-elizabeth this evening given recent NSTEMI will hold her losartan this evening and treat blood pressure greater than 220/120 with IV labetalol -continue losartan 100 mg daily, added metoprolol 50 b.i.d., continue IV labetalol as needed -blood pressure improving nicely 4. Type 2 diabetes -patient reports she takes a sliding scale of 70 30 twice daily -hemoglobin A1c is 10, suggesting poor glycemic control -will increase Lantus to 40 units daily, plus pre meal lispro as well -statin is added for both cerebrovascular, and cardiovascular protection -patient on ARB as well Quality VTE Deep Vein Thrombosis/Pulmonary Embolism Present on Admission: No
--- NOTE | 2021-06-06 15:21 | PC.NURSE ---
Addendum entered by Venice Erwin R.N. 06/06/21 17:20: Patient up to chair for lunch, denies pain. Tolerating diet. PTT is pending. Will continue to monitor. Call light in reach. Patient denies needs at this time. Original Note: Patient A/O x 3, up to restroom, SBA, patient denies LLE weakness, minimal drift noted in LUE, patient endorses feeling much improved since yesterday. Heparin infusing in R AC per protocol. Lungs CTA, RA, 96%. Patient remains HTN but WNL. Patient voiding in restroom, reports last BM 06/04. BT active x 4. Call light and belongings in reach.
--- NOTE | 2021-06-06 15:46 | SLP.IPNOTE ---
Order received. Saw pt in her room. She was in bed. According to nursing pt's speech, language and swallowing are good. Screened speech via conversation. No observed dysarthria or aphasia. Pt denies difficulty with sp/lang. Pt reported that she ate her breakfast without difficulty. She denied any swallowing problems, no choking or coughing. ST not indicated. Will cancel order
--- NOTE | 2021-06-06 16:05 | PT.IIE ---
Medical History (Last Reviewed 06/05/21 @ 18:00 by Mara Boyd MD) Essential hypertension Type 2 diabetes mellitus Physical Therapy Inpatient Evaluation/Re-Eval M1 PT/OT-IP Prior Functional Status Start: 06/06/21 17:19 Freq: NEEDED Status: Active Protocol: Document 06/06/21 16:05 AB (Rec: 06/06/21 17:40 AB [id number]) Medical Review Prior Functional Status Medical History Reviewed Yes Communication able to make needs known Mobility and Gait pt stated that she is independent with all mobilities and ambulation without AD Social History Household Members spouse Living Arrangements House Number of Floors (Floors) Two Floors Number of Stairs To Enter/Railing? 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 PT-IP Current Condition Start: 06/06/21 17:19 Freq: NEEDED Status: Active Protocol: Document 06/06/21 16:05 AB (Rec: 06/06/21 17:40 AB [id number]) Physical Therapy Current Condition Current Condition Evaluation Date 06/06/21 Treatment Diagnosis CVA R frontal lobe; difficulty in walking Onset Date 06/05/21 Precautions Other Precautions falls M3 PT-IP Subjective Start: 06/06/21 17:19 Freq: NEEDED Status: Active Protocol: Document 06/06/21 16:05 AB (Rec: 06/06/21 17:40 AB [id number]) Subjective Physical Therapy Visit Type Type Initial Evaluation Visit Start Time 16:05 Visit Stop Time 16:53 Total Visit Minutes 48 Notes pt on hold initially due to high BP 168/100. pt also on hold pending MRI/ECHO result. checked with nurse again to f/u with pt and BP decreased to 163/80. checked with Dr. Boyd and stated that they got MRI/ECHO result and pt is cleared to do PT. Number of DIANETIC COUNSELOR Visits 0 Physical Therapy Visit Comments Patient Comments agreed to do PT Therapy Pain Assessment Pain When Pain Assessed During Mobility Pain Present Pain Present Pain Reported Location Left Shoulder Intensity 8 Scale Used pain with shoulder abd/ extension Pain Management Techniques Distraction,Modification of Treatment M4 PT-IP Mobility and Gait Start: 06/06/21 17:19 Freq: NEEDED Status: Active Protocol: Document 06/06/21 16:05 AB (Rec: 06/06/21 17:40 AB [id number]) PT-Bed Mobility Assessment Supine to Sit Supine to Sit Standby Assistance Sit to Supine Sit to Supine Standby Assistance PT-Transfer Assessment Sit to and From Stand Sit to and from Stand Moderate Assistance,1 Person Assistance,Use of Upper Extremities Equipment Transfer Assistive Device Gait Belt,Front Wheeled Walker Orthotic/Prosthetic Devices or Brace: No Transfers Transfer Destination Chair Transfer Technique Stand Step Pivot Transfer Ability Level of Assist Moderate Assistance,Maximum Assistance,1 Person Assistance ,Use of Upper Extremities Comments Mobility Comments BP: 191/96 but pt wanting to move and get out of bed. pt completed supine to sit SBA. able to sit on EOB SBA. completed sit to stand mod A and cues. ambulated in room using FWW mod to max A with (+ ) LOB x 3 with on incidence of increase lateral trunk LOB to the L and needed mod A to recover. and (+) L knee buckling x 4 requiring max A for recovery and PT stabilizing L knee at the same time. pt ambulated back to EOB. requested to sit up on chair. completed step transfer using FWW mod A and max cues. positioned pt on chair. call light and table within reach. informed pt and spouse regarding acute rehab recommendation. pt stated that she will think about it and stated that they are planning to go out of town in 1 week 1/2 . informed pt that it is still their decision and informed pt and spouse regarding benefit of acute rehab. also informed pt and spouse that at this time, pt is not safe to go home with incidences of L knee buckling and LOB. informed spouse regarding caregiver training when appropriate. also informed pt and spouse that pt needs to be more stable for stair climbing training. Gait Assessment Gait Gait Assistance Required: Minimum Assistance,Moderate Assistance,1 Person Assist Distance (Feet) 20 Able to Maintain Weight Bearing Status Yes During Gait Assistive Devices Assistive Device Gait Belt,Front Wheeled Walker Orthotic/Prosthetic Devices or Brace: No Gait Deviations General Gait Pattern Step-to Gait Factors Limiting Gait Function Factors Limiting Gait Function Decreased Activity Tolerance, Decreased Strength,Difficulty Following Directions,Pain,Poor Balance,Poor Safety Awareness Comments Gait Comments pls refer to mobility section for details PT-Balance Assessment Sitting Balance and Reactions Static Sitting Balance Ability Good Dynamic Sitting Balance Ability Good Standing Balance and Reactions Static Standing Balance Ability Poor Dynamic Standing Balance Ability Poor Device Used FWW M5 PT-IP Objective Assessments Start: 06/06/21 17:19 Freq: NEEDED Status: Active Protocol: Document 06/06/21 16:05 AB (Rec: 06/06/21 17:40 AB [id number]) Orientation Orientation/Cognition Level of Alertness Alert Orientation Name,Place,Situation Safety Awareness Decreased Safety Awareness Gross Range of Motion Lower Extremity ROM Assessment Within Functional Limits Strength Lower Extremity Strength Assessment Left Impaired Hip 3+/5 Knee 3+/5 M6 PT-IP Treatment Start: 06/06/21 17:19 Freq: NEEDED Status: Active Protocol: Document 06/06/21 16:05 AB (Rec: 06/06/21 17:40 AB [id number]) Physical Therapy Treatment Education Education Provided Safety M7 PT-IP Assessment and Plan Start: 06/06/21 17:19 Freq: NEEDED Status: Active Protocol: Document 06/06/21 16:05 AB (Rec: 06/06/21 17:40 AB [email or web address]) PT Summary Assessment and Plan Potential Rehabilitation Potential Good Status of Condition at Evaluation Evolving Summary Impairments Pain,ROM,Strength,Balance, Coordination,Sensation,Tone, Cognition,Bed Mobility, Transfers,Gait,Activity Tolerance Assessment Summary pt requiring mod to max A for mobility using FWW and has (+) LOB and L knee buckling during ambulation. Recommending acute rehab at this time but pt is hesistant and stated that she will think about it. pt and spouse are aware of safety and recommendations. will conduct caregiver training when appropriate for safe d/c if pt goes home and will need either HHPT or outpt PT depending on progress with assistance level and stability . will continue to assess progress. Goals Bed Mobility Goal Independent Transfer Goal Standby Assistance,Front Wheeled Walker Gait Goal Standby Assistance,Front Wheel Walker Gait Distance 200 Other Goals ambulation using FWW mod I 250 ft up/down 8 steps 1 rail SBA Days to Meet Goals 10 Frequency of Treatment Frequency Of Treatment Once a Day Treatment Plan Physical Therapy Treatment Plan Bed Mobility Training,Transfer Training,Gait Training, Therapeutic Exercise,Balance Retraining,Discharge Planning, Neuromuscular Re-ed, Coordination Retraining,Manual Therapy Precautions Other Precautions falls, BP Recommendations To Nursing Amount of Assist Needed 1 Person Assist Discharge Recommendations PT Discharge Recommendations Acute Rehab Equipment Needed for Home Before FWW if pt goes home Discharge Transportation Needs at Discharge Private Vehicle,Wheelchair/ Cabulance
--- NOTE | 2021-06-06 16:39 | CM.DANOTE ---
DCP/Assessment: Reviewed chart. Patient is a 65yr old female admitted to [facility] with CVA like symptoms. PCP is Fred Souza. Primary payor is 1)[facility] Medicare. Met with patient this AM explained CM/SW role. Patient unable to work with therapy today due to high BP. Patient reports that she is completely I at baseline with ADL's. Patient does feel that she has some deficits on right side but does report she can move extremities. Patient scheduled for ECHO today, provider reports that results will determine next steps. Patient may need higher level of care? P: Anticipate home vs. transfer for higher level of care. CM team to continue to follow. Patient provided with community resources for [facility] 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 MARILOU Goss Discharge Planning/Care Management CM Discharge Assessment Start: 06/06/21 15:24 Freq: Status: Active Protocol: Document 06/06/21 16:37 KJS (Rec: 06/06/21 16:39 KJS [id number]) Discharge Planning Assessment Assigned Crowd Controller MARILOU Goss Contact Information Boo Barlow (spouse) ph# Advance Directives? No History Provided By Patient,Medical Record Prior Living Arrangements House Household Members spouse Type of transporation used prior to Drives own vehicle admit Independent with ADL's Yes Is patient alert and oriented? Yes Barriers to Discharge No Discharge Plan Home Transportation Arrangement Family to provide transport. Whiteboard Updated in Patient Room with Yes name and ext. # of Crowd Controller Review Status In Process Next Review Type Continued Stay Review
[2021-06-06 17:59] LABS: PTT Partial Thromboplastin Tim 103 SECONDS (26.4-36.2)
[2021-06-06] MEDS: ATORVASTATIN 20 MG TABLET 80 MG PO (21:06)
[2021-06-06] MEDS: INSULIN GLARGINE 100 UNIT/ML 3ML PEN 40 UNIT SUBCUT (21:07)
[2021-06-07] VITALS (18 sets, daily range): BP systolic 151–250; BP diastolic 70–122; PULSE 60–76; RESP 15–18; TEMP 35.9–36.2; O2SAT 70–100
[2021-06-07 01:24] LABS: PTT Partial Thromboplastin Tim 36 SECONDS (26.4-36.2)
[2021-06-07] MEDS: ACETAMINOPHEN 325 MG TABLET 650 MG PO ×2 (01:25→09:18)
[2021-06-07] MEDS: HEPARIN 5,000 UNIT/ML VIAL 3000 UNIT IV (01:50)
[2021-06-07 08:08] LABS: PTT Partial Thromboplastin Tim 119 SECONDS (26.4-36.2)
--- NOTE | 2021-06-07 08:32 | PC.NURSE ---
Addendum entered by Venice Erwin R.N. 06/07/21 11:49: Patient worked with OT. Will encourage patient to use FWW. While at rest in bed patient demonstrates no bilateral drift and is able to perform all of NIH scale except patient endorses decreased sensation/numbness along L jaw to distal LUE. Addendum entered by Venice Erwin R.N. 06/07/21 11:18: Patient able to eat breakfast between portions of stress test. Patient has remained NPO since 1000. Awaiting next portion. Patient endorsed back pain from bed, PRN Tylenol administered. Patient denies further needs at this time. Addendum entered by Venice Erwin R.N. 06/07/21 08:41: Patient off unit for procedure Original Note: Patient a/o x 3. Resting in bed. Lungs CTA. Patient on RA. HTN, will pass morning medications. PTT 119, Heparin drip stopped for 1HR per protocol. Patient remains NPO in preparation for test. Patient denies further needs at this time. Call light in reach.
[2021-06-07] MEDS: LOSARTAN 50 MG TABLET 100 MG PO (09:20)
[2021-06-07] MEDS: ASPIRIN EC 81 MG TABLET PO (09:20)
[2021-06-07] MEDS: METOPROLOL ER 50 MG TABLET PO (09:21)
[2021-06-07] MEDS: HEPARIN DRIP 25,000 UNIT/500 ML IV.SOLN 13 UNIT IV (09:21)
--- NOTE | 2021-06-07 10:54 | CM.DPC ---
DCP Cont: Per MD, pt to have stress test today and then possible d/c pending results and if pt is medically stable. Per PT/OT, will work further with pt today and aware that pt is hopeful for home and outpt therapy and not interested in SNF or Acute rehab at this time and concern was pt's buckling knee. SW met bedside with pt and explained role and she confirms that after discussing Acute rehab vs home preference is home with outpt therapies. Pt declines SNF or Acute rehab at this time and states she and her spouse feel comfortable with plan of home and outpt and pt has utilized outpt PT in [place] off [facility] in the past and pt plans to call and set up therapies at d/c. SW updated MD and PT/OT and they will follow for further tx with pt today to confirm safe plan of home with . PT confirms that if pt discharges home, outpt would be preferred tx over HH. Plan: SW to follow closely after stress test and further PT/OT towards confirming pt's plan of home with spouse and outpt therapies. Margarette Merchant MSW
--- NOTE | 2021-06-07 11:30 | OT.IP.EVAL ---
Current Diagnoses Cerebral infarction due to unspecified occlusion or stenosis of unspecified cerebral artery (06/05/21) Past Medical History (Last Reviewed 06/05/21 @ 18:00 by Mara Boyd MD) Essential hypertension Type 2 diabetes mellitus Occupational Therapy Inpatient Evaluation/Re-Eval M1 PT/OT-IP Prior Functional Status Start: 06/06/21 17:19 Freq: NEEDED Status: Active Protocol: Document 06/07/21 11:33 [facility] (Rec: 06/07/21 12:03 [facility] [id number]) Medical Review Prior Functional Status Medical History Reviewed Yes Communication able to make needs known Mobility and Gait pt stated that she is independent with all mobilities and ambulation without AD Activities of Daily Living and IADL's Completely independent for all ADL's, IADL's, and works as a recycling center operator and also drives. Social History Household Members spouse Living Arrangements House Number of Floors (Floors) Two Floors Number of Stairs To Enter/Railing? 8 steps to enter with bilateral wide rails and can only hold on to 1 rail at a time 2nd level bedroom with 8 steps and also wide rails Home Environment High Toilet,Tub/Shower Home Equipment Hand Held Shower Additional Social History Comment pt works as a recycling center operator M2 OT-IP Current Condition Start: 06/07/21 11:33 Freq: Status: Active Protocol: Document 06/07/21 11:33 [facility] (Rec: 06/07/21 12:03 [facility] [id number]) Occupational Therapy Current Condition Current Condition Evaluation Date 06/07/21 Treatment Diagnosis Right frontal CVA, decreased mobility Diagnosis Onset Date 06/05/21 M3 OT- IP Subjective and Pain Start: 06/07/21 11:33 Freq: Status: Active Protocol: Document 06/07/21 11:33 [facility] (Rec: 06/07/21 12:03 [facility] [id number]) OT- Subjective Occupational Therapy Visit Type Type Initial Evaluation Visit Start Time 10:30 Visit Stop Time 11:30 Total Visit Minutes 60 Occupational Therapy Visit Comments Patient Comments Pt agreed to do OT eval. Pt awaiting to have a stress test completed. Patient/Caregiver Goals To go home. OT Pain Assessment Pain When Pain Assessed At Rest Pain Present Pain Present Pain Reported Location Back Description Pressure M4 OT- IP ADL's Start: 06/07/21 11:33 Freq: Status: Active Protocol: Document 06/07/21 11:33 [facility] (Rec: 06/07/21 12:03 [facility] [id number]) OT [id number] Comments OT Self-Feeding Comments NOt at meal time. OT ADL-Grooming Comments OT Grooming Comments NOt performed. OT ADL-Oral Care Comments Oral Care Comments Not performed. OT ADL-Dressing General Eval Lower Body Dressing Ability Standby Assistance Comments OT Dressing Comments Pt able to pooja/doff socks while seated. Best for pt to sit in order to do LB dressing needs. OT ADL-Toileting General Evaluation Toileting Ability Standby Assistance Comments OT Toileting Comments Pt needing use of grab bar to assist to stand. OT ADL-Bathing Comments OT Bathing Comments Not performed as waiting to get stress test done. M5 OT- IP IADL's Start: 06/07/21:33 Freq: Status: Active Protocol: Document 06/07/21 11:33 [facility] (Rec: 06/07/21 12:03 [facility] [id number]) OT-Instrumental Activities of Daily Living Deficits IADL Deficits Identified Deficits Home Safety Awareness Awareness of Need for Assistance at Home Decreased Awareness Ability to Problem Solve Emergency Able to Problem Solve Situations Home Safety Comments Pt able to accurately answer all home safety situations but having difficulty with word finding. Pt states is worse than it usually is for her. Medication Management Medication Management Comments Would be best for her and family to assist for her needs at this time due to decreased memory, problem solving and decreased dynamic balance, an decreased safety awareness. Money Management Money Management Caregiver Provides Assistance Meal Preparation Meal Preparation Comments Would be best for her and family to assist for her needs at this time due to decreased memory, problem solving and decreased dynamic balance, an decreased safety awareness. Raking Machine Operator Raking Machine Operator Comments Would be best for her and family to assist for her needs at this time due to decreased memory, problem solving and decreased dynamic balance, an decreased safety awareness. Driving Driving Concerns Identified Regarding Safety M6 OT- IP Functional Cognition Start: 06/07/21:33 Freq: Status: Active Protocol: Document 06/07/21 11:33 [facility] (Rec: 06/07/21 12:03 [facility] [id number]) Cognitive Factors Limiting Selfcare Function Cognitive Ability Level of Alertness Alert Patient Orientation Name,Age,Birthday,Month,Date, Year,Day of Week,Place, Situation Attention Span Ability Capable of Focused Attention, Capable of Sustained Attention Ability to Follow Commands Able to Follow One Step Commands Memory Description Short Term Impaired,Working Impaired Safety Awareness Underestimates Need for Assistance Problem Solving Ability Needs Assist to Identify Solutions Executive Function Ability Unable to Filter Distractions, Unable to Organize Plans, Unable to Remember Details Cognitive Tests SLUMS Pr scored 19/30 which implies impaired cognition, dementia ( 1-20). Pt only able to recall 1/5 objects after time passed , pt not able to draw the hour hands on the clock correctly after time given, pt not able to put an x on the triangle, pt able to answer 2/4 questions after paragraph read . Pt tends to try to anticipate what needs to be done versus listening first and then react. Pt is highly distractible. Cognitive Comments Cognitive Assessment Comments Pt scored 128 seconds on [place] Making B and half way through the assessment forgot the directions and needing MAX vc to complete the assessment. Pt score implied severe impairment for attention span, task switching, speed of processing, executive functioning and mental flexibility. OT- Vision and Hearing OT- Hearing Assessment OT- Hearing Assessment WFL OT- Vision Assessment Visual Acuity Glasses For Reading Occular Pursuits WFL Visual Convergence WFL Visual [place] WFL Diplopia Absent M7 OT- IP Mobility and Balance Start: 06/07/21 11:33 Freq: Status: Active Protocol: Document 06/07/21 11:33 [facility] (Rec: 06/07/21 12:03 [facility] [id number]) OT- Bed Mobility Assessment Rolling Type of Rolling Roll to Right Level of Assistance Standby Assistance Supine to Sit Supine to Sit Assist Standby Assistance Sit to Supine Sit to Supine Assist Standby Assistance Scooting Scooting to Edge of Bed Standby Assistance OT-Transfer Assessment Sit to and From Stand Sit to and from Stand Standby Assistance Transfers Transfer Ability Standby Assistance,Minimal Assistance Technique Transfer Destination Bed,Toilet Transfer Technique Stand Step Pivot Devices Transfer Assistive Devices None,Gait Belt,Front Wheeled Walker Comments Mobility Comments Initially had pt walk with no device as pt states has been walking into and out of the bathroom with nursing. Pt tends to place her hand out on surfaces and use of grab bar. Then had pt use FWW and noted much safer. OT- Balance Assessment Sitting Balance and Reactions Static Sitting Balance Ability Normal Dynamic Sitting Balance Ability Good Standing Balance and Reactions Static Standing Balance Ability Fair Dynamic Standing Balance Ability Poor Comments Other Balance Tests/Deviations/Treatment Pt unable to stand on her left : foot and loss of balance and MAX A to regain her balance. Stressed to pt bets to use the FWW while walking as she is a high fall risk due to her weakness on her LLE. M8 OT- IP Objective Assessments Start: 06/07/21 11:33 Freq: Status: Active Protocol: Document 06/07/21 11:33 [facility] (Rec: 06/07/21 12:03 [facility] [id number]) OT Gross Range of Motion Upper Extremity Range of Motion Assessment Within Functional Limits OT Strength Upper Extremity Strength Assessment Left Impaired OT- Coordination Assessment Upper Extremity Finger to Nose Test Left UE Impaired OT-Muscle Tone Assessment Muscle Tone WNL Yes OT Sensation Assessment Comments Summary Comments Pt states LUE feels heavy and numb able to feel light touch for al of her LUE except for her wrist. Edema Edema Absent Edema Comments Left shoulder and arm noted swollen throughout, hospitalist notified. M9 OT- IP Assessment and Plan Start: 06/07/21 11:33 Freq: Status: Active Protocol: Document 06/07/21 11:33 [facility] (Rec: 06/07/21 12:03 [facility] [id number]) OT Summary Assessment and Plan Potential Rehabilitation Potential Good Analytic Complexity at Evaluation Moderate Summary OT Impairments Pain,Range of Motion,Strength, Balance,Coordination,Sensation ,Functional Cognition, Functional Mobility,Self- Feeding,Grooming,Dressing, Toileting,Bathing,Toilet Transfers,Shower Transfers, Activity Tolerance Progress Towards Goals Slow Progress due to Medical Issues,Slow Progress due to Activity Tolerance,Slow Progress due to Cognition Assessment Summary Pt high complexity and here due to right frontal CVA and now having difficulty with her balance, cognitive needs, strength, coordination, safety awareness, and kinesthesia for her LUE. Pt would highly benefit from going to acute rehab but pt not wanting to go and insists on going home. Pt will need to have 24/7 assist at home. If going home recommend HH versus outpt OT Goals Self-Feeding Goal Independent Grooming Goal Independent Dressing Goal Independent Toileting Goal Independent Bathing Goal Independent Toilet Transfer Goal Independent Shower Transfer Goal Independent Patient/Caregiver Education Goal Caregiver Independent Assisting Patient Days to Meet Goals 20 Frequency of Treatment Frequency Of Treatment Once a Day Treatment Plan OT Treatment Plan ADL Training,Functional Cognition Training,Functional Mobility,Patient/Family Education,Discharge Planning Other Treatment Recommendations and Next Shower if still here. Treatment Focus Discharge Recommendations OT Discharge Recommendations Acute Rehab Home Equipment Needs Shower chair, FWW Transportation Needs at Discharge Private Vehicle
[2021-06-07] MEDS: INSULIN LISPRO 100 UNIT/ML 3ML VIAL SUBCUT ×2 (12:28→21:59)
[2021-06-07 15:18] LABS: PTT Partial Thromboplastin Tim 27 SECONDS (26.4-36.2)
--- NOTE | 2021-06-07 15:40 | PT.IPTN ---
Current Diagnoses Cerebral infarction due to unspecified occlusion or stenosis of unspecified cerebral artery (06/05/21) Physical Therapy Treatment Note M2 PT-IP Current Condition Start: 06/06/21 17:19 Freq: NEEDED Status: Active Protocol: Document 06/06/21 16:05 AB (Rec: 06/06/21 17:40 AB [id number]) Physical Therapy Current Condition Current Condition Evaluation Date 06/06/21 Treatment Diagnosis CVA R frontal lobe; difficulty in walking Onset Date 06/05/21 Precautions Other Precautions falls M3 PT-IP Subjective Start: 06/06/21 17:19 Freq: NEEDED Status: Active Protocol: Document 06/07/21 15:40 AB (Rec: 06/07/21 16:44 AB [id number]) Subjective Physical Therapy Visit Type Type Treatment Note Visit Start Time 15:40 Visit Stop Time 16:10 Total Visit Minutes 30 Number of LOADING UNIT OPERATOR Visits 0 M4 PT-IP Mobility and Gait Start: 06/06/21 17:19 Freq: NEEDED Status: Active Protocol: Document 06/06/21 16:05 AB (Rec: 06/06/21 17:40 AB [id number]) PT-Bed Mobility Assessment Supine to Sit Supine to Sit Standby Assistance Sit to Supine Sit to Supine Standby Assistance PT-Transfer Assessment Sit to and From Stand Sit to and from Stand Moderate Assistance,1 Person Assistance,Use of Upper Extremities Equipment Transfer Assistive Device Gait Belt,Front Wheeled Walker Orthotic/Prosthetic Devices or Brace: No Transfers Transfer Destination Chair Transfer Technique Stand Step Pivot Transfer Ability Level of Assist Moderate Assistance,Maximum Assistance,1 Person Assistance ,Use of Upper Extremities Comments Mobility Comments BP: 191/96 but pt wanting to move and get out of bed. pt completed supine to sit SBA. able to sit on EOB SBA. completed sit to stand mod A and cues. ambulated in room using FWW mod to max A with (+ ) LOB x 3 with on incidence of increase lateral trunk LOB to the L and needed mod A to recover. and (+) L knee buckling x 4 requiring max A for recovery and PT stabilizing L knee at the same time. pt ambulated back to EOB. requested to sit up on chair. completed step transfer using FWW mod A and max cues. positioned pt on chair. call light and table within reach. informed pt and spouse regarding acute rehab recommendation. pt stated that she will think about it and stated that they are planning to go out of town in 1 week 1/2 . informed pt that it is still their decision and informed pt and spouse regarding benefit of acute rehab. also informed pt and spouse that at this time, pt is not safe to go home with incidences of L knee buckling and LOB. informed spouse regarding caregiver training when appropriate. also informed pt and spouse that pt needs to be more stable for stair climbing training. Gait Assessment Gait Gait Assistance Required: Minimum Assistance,Moderate Assistance,1 Person Assist Distance (Feet) 20 Able to Maintain Weight Bearing Status Yes During Gait Assistive Devices Assistive Device Gait Belt,Front Wheeled Walker Orthotic/Prosthetic Devices or Brace: No Gait Deviations General Gait Pattern Step-to Gait Factors Limiting Gait Function Factors Limiting Gait Function Decreased Activity Tolerance, Decreased Strength,Difficulty Following Directions,Pain,Poor Balance,Poor Safety Awareness Comments Gait Comments pls refer to mobility section for details PT-Balance Assessment Sitting Balance and Reactions Static Sitting Balance Ability Good Dynamic Sitting Balance Ability Good Standing Balance and Reactions Static Standing Balance Ability Poor Dynamic Standing Balance Ability Poor Device Used FWW M5 PT-IP Objective Assessments Start: 06/06/21 17:19 Freq: NEEDED Status: Active Protocol: Document 06/06/21 16:05 AB (Rec: 06/06/21 17:40 AB [id number]) Orientation Orientation/Cognition Level of Alertness Alert Orientation Name,Place,Situation Safety Awareness Decreased Safety Awareness Gross Range of Motion Lower Extremity ROM Assessment Within Functional Limits Strength Lower Extremity Strength Assessment Left Impaired Hip 3+/5 Knee 3+/5 M6 PT-IP Treatment Start: 06/06/21 17:19 Freq: NEEDED Status: Active Protocol: Document 06/07/21 15:40 AB (Rec: 06/07/21 16:44 AB [id number]) Physical Therapy Treatment Exercises Exercises Gluteal Sets,Quad Sets,Seated Knee Flexion/Extension Education Education Provided Safety Other Treatments Other Treatment Performed checked on pt and set up. Dr. Boyd came in to talk to pt and stated that pt will possibly go home today. Dr. boyd informed PT that pt needs outpt PT provider list. checked back with pt. Outpt PT facilities list provided to pt. also informed pt that caregiver training will be conducted since pt is going home. BP checked: 250/[address]. Dr. boyd then informed pt that she cannot go home today due to high BP. informed pt that PT cannot do much due to high BP. education provided to pt and spouse. educated spouse on how to don/doff safety belt and spouse was able to manage. pt also has questions regarding LLE quads activation and exercises. pt educated on HEP and techniques. Set up caregiver trainin am 06/08. M7 PT-IP Assessment and Plan Start: 06/06/21 17:19 Freq: NEEDED Status: Active Protocol: Document 06/07/21 15:40 AB (Rec: 06/07/21 16:44 AB [id number]) PT Summary Assessment and Plan Potential Rehabilitation Potential Good Summary Impairments ROM,Strength,Balance, Coordination,Sensation,Tone, Cognition,Bed Mobility, Transfers,Gait,Activity Tolerance Progress Towards Goals Slow Progress due to Medical Issues Assessment Summary pt with high BP 250/116 and not able to mobilize with PT but provided education and HEP to pt and spouse. caregiver training set up for tomorrow at 10 am. Goals Bed Mobility Goal Independent Transfer Goal Standby Assistance,Front Wheeled Walker Gait Goal Standby Assistance,Front Wheel Walker Gait Distance 200 Other Goals ambulation using FWW mod I 250 ft up/down 8 steps 1 rail SBA Days to Meet Goals 10 Frequency of Treatment Frequency Of Treatment Once a Day Treatment Plan Physical Therapy Treatment Plan Bed Mobility Training,Transfer Training,Gait Training, Therapeutic Exercise,Balance Retraining,Discharge Planning, Neuromuscular Re-ed, Coordination Retraining,Manual Therapy Other Recommendations and Next Treatment caregiver trainin/14 @ 10 Focus am Precautions Other Precautions falls, BP Recommendations To Nursing Amount of Assist Needed 1 Person Assist Discharge Recommendations PT Discharge Recommendations Acute Rehab Equipment Needed for Home Before FWW if pt goes home Discharge Transportation Needs at Discharge Private Vehicle,Wheelchair/ Cabulance
[2021-06-07] MEDS: LABETALOL 20 MG/4 ML SYRINGE 5 MG IV (16:02)
--- NOTE | 2021-06-07 16:21 | PC.NURSE ---
Addendum entered by Dara Munoz R.N. 06/07/21 19:09: Provider was made aware of pt's bp 210/96 HR 70 @ this hour. Original Note: Physical therapy in to see patient to provide instruction in caregiver training. Heparin drip continues pending Dr. Boyd's statement preparing to discharge pt to home. Physical therapist in room preparing to mobilize pt and pt sitting upright on side of bed with blood pressure 216/118 HR 68, BP 250/[address] Boyd is in room and issues verbal order to discontinue heparin drip now. This was done. Medicated with labetalol as per Dr. Boyd. Pt denies any urinary complaints or symptoms. Pt's spouse is present in room and involved in pt's care.
--- NOTE | 2021-06-07 18:47 | P.PN_ITS ---
Subjective Subjective Interval history: The patient is a 65-year-old female who was admitted to the hospital for an acute right brain right frontal lobe stroke, in addition the patient has malignant hypertension which has been difficult to control. She had some substernal chest pain. Her troponins peaked and improved. She had a myocardial nuclear medicine stress test today which was unremarkable. Patient's blood pressure continues to be difficult to control despite increasing her blood pressure medications. Exam Vital Signs (past 8 hours): - 06/07/21 12:24 06/07/21 16:00 06/07/21 16:02 Temperature 97.1 F L Pulse Rate 64 68 72 Respiratory Rate 16 Blood Pressure 199/97 H 216/118 H 250/116 H Pulse Oximetry 98 06/07/21 16:16 06/07/21 16:30 06/07/21 16:44 Temperature 96.6 F L Pulse Rate 72 71 71 Respiratory Rate 15 Blood Pressure 250/116 H 208/122 H 208/122 H Pulse Oximetry 98 06/07/21 18:15 Temperature Pulse Rate Respiratory Rate 18 Blood Pressure 210/97 H Pulse Oximetry 100 Oxygen Delivery Method Room Air Oxygen Flow Rate 0 Narrative Exam Narrative: Pleasant female resting comfortably in no obvious distress Resp Other: Lungs: Clear to auscultation Cardio Other: Cardiac exam: Regular rate and rhythm normal S1-S2 with a 2/6 systolic ejection murmur GI Other: Abdomen: Soft nontender nondistended Extrem Other: Extremities: No edema Objective Labs Result Diagrams: 06/06/21 06:55 06/05/21 14:18 Labs: Laboratory Results - last 24 hr 06/07/21 06/07/21 06/07/21 01:10 07:09 14:53 APTT 36 D 119 H* D 27 D PFSH Medical History Essential hypertension Type 2 diabetes mellitus Family History (Updated 06/05/21 @ 18:00 by Mara Boyd MD) Mother Cancer Father Cardiac arrest Social History household members: spouse Smoking Status: Never smoker Assessment & Plan Assessment & Plan narrative: 5-year-old female with a history of hypertension, type 2 diabetes admitted to the hospital with left sided weakness, left-sided numbness, NIH stroke scale score of 3-6, here for probable acute ischemic stroke -head CT in the emergency department - No acute intracranial process. 2. Focus of low attenuation in the right frontal lobe appearing chronic. This could represent a small focus of early chronic microvascular ischemia, focus of previous infection/inflammation/ischemia, migraine sequela or less likely demyelinating disease - Limited examination secondary to contrast bolus timing factors. 2. No defin ite acute process involving the arterial tree of the head and neck -patient's NIH stroke scale score of 6 earlier now 3 suggest probable acute ischemic event -patient was markedly hypertensive on admission, that coupled with her type 2 diabetes, makes ischemic stroke highly likely -patient received aspirin in the emergency department, she will be started on a statin this evening, will hold Plavix at this time -brain MRI confirmed subacute infarct involving the posterior aspect of the right frontal lobe -echo reveals no wall motion abnormalities, no embolic focus,No shunts are noted -patient will continue on aspirin,plavix, statin, losartan for blood pressure -Stiill unsteady with ambulation, patient offered Acute rehab but prefers outpatient rehab -At discharge will refer to acute rehab Type 2 Myocardial Infarction -patient reports chest pain, prior to admission -initial troponin elevated at 0.529 -12 lead EKG reveals sinus rhythm with nonspecific ST T wave abnormality -given patient's complaint of chest pain, risk factors, elevated troponin she will be feet treated for a NSTEMI at this time -will start IV heparin, continue aspirin, start low-dose beta-elizabeth -echocardiogram reveals no wall motion abnormalities -continue IV heparin for 48 hours total, continue aspirin, continue beta- elizabeth, once patient is off the IV heparin will initiate Plavix 75 mg daily -Urszula scan reveals no reversible ischemia, perfusion is normal -patient continues to have indigestion, will start PPI 3. Hypertension -patient likely hypertensive related to her acute stroke, will allow for permissive hypertension -blood pressure goal is to keep systolic blood pressure less than 220 systolic and less than 120 diastolic -will start beta-elizabeth this evening given recent NSTEMI will hold her losartan this evening and treat blood pressure greater than 220/120 with IV labetalol -continue losartan 100 mg daily, added metoprolol 50 b.i.d., continue IV labetalol as needed -Blood pressure still suboptima, will increase metoprolol to 100 bid, continue losartan 100 daily, add IV hydralazine, consider diuretic if still hypertensive 4. Type 2 diabetes -patient reports she takes a sliding scale of 70 30 twice daily -hemoglobin A1c is 10, suggesting poor glycemic control -will increase Lantus to 40 units daily, plus pre meal lispro as well -statin is added for both cerebrovascular, and cardiovascular protection -patient on ARB as well -BS this am 68, will decrease evening insulin Quality VTE Deep Vein Thrombosis/Pulmonary Embolism Present on Admission: No
[2021-06-07] MEDS: HYDRALAZINE 20 MG/ML VIAL 10 MG IV (19:22)
--- NOTE | 2021-06-07 19:45 | DI.NM.S_ITS ---
DATE OF SERVICE: 06/07/2021 PROCEDURE PERFORMED: Pharmacologic vasodilator stress and rest myocardial perfusion imaging with gating to assess ejection fraction and regional wall motion. ORDERING PROVIDER: Dr. Mara Boyd. INDICATIONS: The patient is a 65-year-old female admitted with dyspnea and left- sided numbness with a previous episode of chest discomfort. CARDIAC STRESS: Per protocol, 0.4 mg of regadenoson was infused, augmented with low level walking. With this, she had a normal heart rate and blood pressure response to exercise. She developed 5/10 left-sided chest discomfort that dissipated to 2/10 discomfort by recovery. Her resting ECG shows sinus rhythm with LVH and a strain pattern with significant diffuse ST and T-wave abnormalities in the inferolateral leads at rest that become somewhat accentuated with stress but remains nonspecific because of the baseline abnormality. She had no arrhythmias. Per protocol, 23.7 millicuries of technetium-99m Myoview was injected and she was imaged 20 minutes later using a gated SPECT acquisition protocol. Earlier in the day while at rest, she had been injected with 11.8 millicuries of technetium-99m Myoview and was imaged 30 minutes later, again using a gated SPECT acquisition protocol. FINDINGS: 1. Raw data, there is fairly good myocardial tracer uptake with minimal breast shadows noted. Lung/heart ratio was normal at 0.32 with a normal TID ratio of 1.13. 2. Quantitated gated SPECT: Post-stress ejection fraction is estimated at 72% without any focal wall motion abnormality. Resting ejection fraction is 74% with an end-diastolic volume of 109 mL. 3. Myocardial perfusion imaging: Post-stress supine images shows a normal myocardial perfusion pattern without any perfusion defects, supported by normal perfusion imaging in the prone position. The resting images show an identical perfusion pattern without any areas of improvement. IMPRESSION: 1. Normal myocardial perfusion study. 2. No evidence of myocardial ischemia or previous myocardial infarction. 3. Normal left ventricular systolic function without any focal wall motion abnormality. 4. She had chest discomfort with pharmacologic vasodilator stress. Her ECG shows an LVH with strain pattern. It becomes slightly accentuated with stress, but remains nonspecific for ischemia. Rosanna Barlow - LELA/balbir/sonali doc#: [id number]/job#: [id number] dd: 06/07/2021 15:19:00 dt: 06/07/2021 19:16:00 DICTATING MD/COPIES TO: Ron Ruano MD; Mara Boyd MD COPIES MNE: [place];
[2021-06-07] MEDS: SODIUM CHLORIDE 0.9% FLUSH 10 ML IV (20:31)
[2021-06-07] MEDS: METOPROLOL ER 50 MG TABLET 100 MG PO (20:31)
[2021-06-07] MEDS: ATORVASTATIN 20 MG TABLET 80 MG PO (20:34)
[2021-06-07] MEDS: INSULIN GLARGINE 100 UNIT/ML 3ML PEN 30 UNIT SUBCUT (21:59)
[2021-06-08] VITALS (9 sets, daily range): BP systolic 144–206; BP diastolic 71–101; PULSE 61–75; RESP 14–16; TEMP 36.5–36.6; O2SAT 96–99
[2021-06-08] MEDS: HYDRALAZINE 20 MG/ML VIAL 10 MG IV (04:52)
--- NOTE | 2021-06-08 06:26 | PC.NURSE ---
At approx 0420 pt had BP 206/101 HR 69. Patient asymptomatic, denies headache, chest pain or pressure, nausea, blurry vision, or additional numbness/tingling. AOx4, NIHSS unchanged, no apparent cardiovascular or respiratory distress. Remeasured at approx 0450 BP 195/96 HR 61 & given 10 mg hydralazine PRN. At approx 0535 BP 147/71 HR 72. Patient remains asymptomatic.
[2021-06-08] MEDS: PANTOPRAZOLE DR 40 MG TABLET PO (06:45)
--- NOTE | 2021-06-08 08:58 | P.DS_ITS ---
History of Present Illness History of Present Illness Chief complaint: numbness on left side/difficult to walk Narrative: The patient is a 65-year-old female with a history of hypertension, type 2 diabetes, who was in her usual state of health until yesterday. She was going to work and noted being short of breath. The patient then noted left- sided numbness, she had numbness from her left arm up to her face, she then got up from a meeting in noted that her left leg was weak. The patient went home was not feeling well in her encouraged her to come to the hospital. She had no headache but does report some blurred vision, she had no slurred speech, no facial droop. The patient does report having substernal chest pain yesterday. She described a feeling like she had heartburn, the pain lasted about 30 minutes and then resolved. He had recurrent symptoms today which lasted about 10 minutes. It did not radiate, she had known nausea or diaphor esis. Patient does report she was somewhat lightheaded earlier but since then that has resolved. Patient was seen and evaluated in the emergency room. At the time of admission her blood pressure was 260 systolic, in addition she was found to have a troponin elevated at 0.529, EKG was unremarkable. In addition the patient had a NIH stroke scale score of 6. Her initial head CT was negative for an acute bleed. Patient was admitted to the hospital for an acute ischemic stroke. The patient currently is pain free. She continues to have numbness on the left side, but no other lateralizing neurological symptoms. Discharge Providers Provider Date of admission: 06/05/21 16:16 Discharge Date: 06/08/21 Primary care physician: ROSEMARY Rivera Consults: 06/05/21 17:37 Consult to Discharge Planning Routine Comment: Consult to Occupational Therapy Evaluate & Treat Comment: Physician Instructions: Evaluate and treat Consult to Physical Therapy Evaluate & Treat Comment: Physician Instructions: Evaluate and Treat Consult to Speech Therapy Evaluate & Treat Comment: Physician Instructions: Evaluate and treat Discharge provider: Mara Boyd MD Summary Hospital Course Discharge Diagnosis: 1. Acute right frontal lobe CVA 2. Hypertension, poorly controlled 3. Type 2 diabetes with suboptimal control, glycohemoglobin 10 4. GERD 5. Type 2 myocardial infarction Hospital Course: The patient is a 65-year-old female who was admitted to the h ospital for numbness involving the left arm and left leg. The patient also reported substernal chest pressure, she had no significant acute ST-T changes, however she had an elevation of 0.529, And then improved. The patient had a CT of her head which was negative for an acute stroke. However she had an MRI of the brain which showed a subacute right frontal a stroke. The patient underwent a cardiac echo. The cardiac echo showed no wall motion abnormalities. Her ejection fraction was 60-65%. As the patient had elevated cardiac enzymes associated with chest pressure she underwent a Lexiscan stress test. The patient had no evidence of perfusion abnormalities or reversible ischemia. Of note she did have chest pain during the procedure. This was associated with LV strain but no perfusion abnormalities. The patient's blood sugars were elevated during the hospital stay. Her insulin was adjusted. The patient will be seen by dietary at the time of discharge to advise her on carb counting and diabetic Education. Patient's blood pressure was markedly elevated during the hospital stay. She initially had a systolic blood pressure of 260. The patient's medications were adjusted her losartan was increased from 50-100 per day. Metoprolol was increased to 100 twice daily. The patient did require IV hydralazine. This morning her blood pressures improved at 147/71. Her numbness on the left side has improved. Her blood sugar was 74 this morning. Patient was seen by physical therapy occupational therapy and speech therapy. Speech therapy did a slums evaluation which was 09/24 which was somewhat concerning. In addition PT and OT saw the patient. They recommended inpatient rehab however the patient opted for outpatient rehabilitation which she was given a referral to several facilities in the [facility]. She made slow but steady progress and was deemed appropriate for discharge and arrangements will be made for her to discharge home today. Status at Discharge Cognitive/behavioral status at discharge: oriented Functional status at discharge: uses cane/walker Overall status at discharge: patient is not back to baseline Exam Vital Signs (past 8 hours): - 06/08/21 01:00 06/08/21 04:16 06/08/21 04:52 Temperature 97.8 F 97.8 F Pulse Rate 70 69 61 Respiratory Rate 14 16 Blood Pressure 199/96 H 206/101 H 195/96 H Pulse Oximetry 99 98 06/08/21 05:37 06/08/21 05:38 Temperature Pulse Rate 72 72 Respiratory Rate Blood Pressure 147/71 H 147/71 H Pulse Oximetry Oxygen Delivery Method Room Air Oxygen Flow Rate 0 Narrative Exam Narrative: Pleasant female resting comfortably in no obvious distress Resp Other: Lungs: Clear to auscultation Cardio Other: Cardiac exam: Regular rate and rhythm normal S1-S2 with a 2/6 systolic ejection murmur GI Other: Soft nontender nondistended no hepatosplenomegaly Extrem Other: No edema Objective Labs Result Diagrams: 06/06/21 06:55 06/05/21 14:18 Labs: Laboratory Results - last 24 hr 06/07/21 14:53 APTT 27 D PFSH Medical History Essential hypertension Type 2 diabetes mellitus Family History (Updated 06/05/21 @ 18:00 by Mara Boyd MD) Mother Cancer Father Cardiac arrest Social History household members: spouse Smoking Status: Never smoker Discharge Assessment & Plan Assessment and Plan Assessment: Acute frontal lobe CVA Hypertension Type 2 diabetes GERD Type 2 myocardial infarction Plan of Treatment: She will follow-up with the referral to outpatient rehabilitation provided Patient to take medications as instructed She will follow-up with her PCP for outpatient diabetic Education Patient is instructed to continue to check her blood pressure twice daily at home Follow-up with her PCP next week Patient will need a walker in her left leg instability Discharge Plan Discharge orders & Medications Discharge Orders: Discharge (Order); Ordered 06/07/21 Ordered By: Mara Boyd Prescriptions: No Action losartan 50 mg tablet 50 mg PO DAILY Qty: 30 RF: 2 Novolin 70/30 U-100 Insulin See Rx Instructions .ROUTE .COMPLEX RF: 0 Follow up/Referrals: Pastora Keene ARNP [Primary Care Provider] - Discharge Data Primary Care Provider: Pastora Keene Quality VTE Deep Vein Thrombosis/Pulmonary Embolism Present on Admission: No
[2021-06-08] MEDS: LOSARTAN 50 MG TABLET 100 MG PO (09:19)
[2021-06-08] MEDS: ASPIRIN EC 81 MG TABLET PO (09:19)
[2021-06-08] MEDS: METOPROLOL ER 50 MG TABLET 100 MG PO (09:21)
[2021-06-08] MEDS: SODIUM CHLORIDE 0.9% FLUSH 10 ML IV (09:21)
--- NOTE | 2021-06-08 09:23 | CM.DPC ---
Addendum entered by MARILOU Patel 06/08/21 11:33: ADD: Per PT, recommending HH and pt now agreeable to HH and d/c home today. LAURIE called [facility] as [facility] is a week or week and a half out from start availability and only other HH agency that services [place] is [facility]. [facility] can accept pt referral per Yudi at [facility] and LAURIE faxed signed [id number], orders, and referral for plan of d/c home with spouse today and new [facility] services. HH RN/PT/OT/PURCHASING SUPERVISOR. BF Original Note: DCP Discharge Home Per MD, pt had stress test yesterday and normal results and pt now medically stable to d/c home today and pt still confirms she is not interested in Acute Inpt Rehab or HH but preference is outpt PT where she has been established at before. Per PT, to complete CG training with spouse today around 1000 as they were unable to work with pt yesterday due to bp issues and pt has lots of stairs to enter the home. LAURIE provided the copy of pt's Medicare Message to pt to include in her discharge pwk packet to take home. Plan: SW to follow after CG training with PT to determine if safe plan of home with outpt PT and any further identified needs. MARILOU Patel
--- NOTE | 2021-06-08 09:27 | PC.NURSE ---
Addendum entered by Venice Erwin R.N. 06/08/21 14:32: Pharmacy able to give discharge instructions regarding new Rx. This Rn also provided extensive teaching regarding s/s of worsening condition, HTN, stroke, f/u care and activity. Patient and receptive to teaching. Answered f/u questions and assisted patient to wheelchair for discharge. Patient discharged. Addendum entered by Venice Erwin R.N. 06/08/21 13:21: Patient currently working with OT. Original Note: Patient resting in bed. Denies SOB, chest pain, or change in neuro status. Patient VSS, 98% on RA, lungs CTA. Pulses equal. Endorses minimal numbness along left jaw to L shoulder. Patient's IV leaking, removed. MD aware and is OK with no IV access. Tele removed per MD. Patient encouraged to call before getting OOB. Denies further needs at this time. Call light in reach.
--- NOTE | 2021-06-08 10:22 | PT.IPTN ---
Current Diagnoses Cerebral infarction due to unspecified occlusion or stenosis of unspecified cerebral artery (06/05/21) Physical Therapy Treatment Note M2 PT-IP Current Condition Start: 06/06/21 17:19 Freq: NEEDED Status: Active Protocol: Document 06/06/21 16:05 AB (Rec: 06/06/21 17:40 AB [id number]) Physical Therapy Current Condition Current Condition Evaluation Date 06/06/21 Treatment Diagnosis CVA R frontal lobe; difficulty in walking Onset Date 06/05/21 Precautions Other Precautions falls M3 PT-IP Subjective Start: 06/06/21 17:19 Freq: NEEDED Status: Active Protocol: Document 06/08/21 10:22 AB (Rec: 06/08/21 12:52 AB [id number]) Subjective Physical Therapy Visit Type Type Treatment Note Visit Start Time 10:22 Visit Stop Time 11:00 Total Visit Minutes 38 Number of APPLICATIONS SYSTEMS ANALYST Visits 0 Physical Therapy Visit Comments Patient Comments agreeable to do PT M4 PT-IP Mobility and Gait Start: 06/06/21 17:19 Freq: NEEDED Status: Active Protocol: Document 06/08/21 10:22 AB (Rec: 06/08/21 12:52 AB [id number]) PT-Transfer Assessment Sit to and From Stand Sit to and from Stand Contact Guard Assistance,1 Person Assistance,Use of Upper Extremities Equipment Transfer Assistive Device Bed Rail,Gait Belt,Front Wheeled Walker Orthotic/Prosthetic Devices or Brace: No Comments Mobility Comments pt sitting on EOB and spouse in room. BP: 186/95. spouse was able to put safety belt on pt. educated spouse on how to use safety belt and how to assist pt. pt completed sit to stand CGA and spouse assisted . pt ambulated in room CGA to min A with spouse assisting. pt agreed to do stairs. ambulated with sposue assisting towards [facility] stairs ~ 100 ft. (+) L knee giving out x 2 with recovery and assist from pt's spouse. stair climbing training. PT assisting pt with 1st set and educated pt and spouse on how to complete. completed up/ down steps using bilateral rails min A and cues. completed up/down steps using L rail min to mod A and cues. completed again with spouse assisting and completed safely . assisted pt back to her room. pt completed ambulation w/c to bed using FWW CGA. left pt with spouse. call light and table placed within reach. pt and spouse without any concerns. pt agreed to do HHPT at this time until much more independent to do Outpt PT Gait Assessment Gait Gait Assistance Required: Contact Guard Assist,Minimum Assistance Distance (Feet) 100 Able to Maintain Weight Bearing Status Yes During Gait Assistive Devices Assistive Device Gait Belt,Front Wheeled Walker Orthotic/Prosthetic Devices or Brace: No Gait Deviations General Gait Pattern Antalgic,Decreased Stride Length,Decreased Feet Clearance,Step-to Gait Factors Limiting Gait Function Factors Limiting Gait Function Decreased Activity Tolerance, Decreased Strength,Difficulty Following Directions,Poor Balance,Poor Safety Awareness Stair Climbing Assessment Evaluation Level of Assist On Stairs Minimal Assistance,Moderate Assistance,1 Person Assistance Devices Stair Climbing Assistive Devices Right Railing Technique/Endurance Stair Climbing Direction Ascend and Descend Stair Climbing Technique Step to Step Number of Steps Climbed 3 Stair Climbing Set # Repetitions (reps) 2 Comments Stair Climbing Comments pls refer to mobility section for details M5 PT-IP Objective Assessments Start: 06/06/21 17:19 Freq: NEEDED Status: Active Protocol: Document 06/06/21 16:05 AB (Rec: 06/06/21 17:40 AB [id number]) Orientation Orientation/Cognition Level of Alertness Alert Orientation Name,Place,Situation Safety Awareness Decreased Safety Awareness Gross Range of Motion Lower Extremity ROM Assessment Within Functional Limits Strength Lower Extremity Strength Assessment Left Impaired Hip 3+/5 Knee 3+/5 M6 PT-IP Treatment Start: 06/06/21 17:19 Freq: NEEDED Status: Active Protocol: Document 06/08/21 10:22 AB (Rec: 06/08/21 12:52 AB [id number]) Physical Therapy Treatment Exercises Exercises Gluteal Sets,Quad Sets,Seated Knee Flexion/Extension Education Education Provided Safety M7 PT-IP Assessment and Plan Start: 06/06/21 17:19 Freq: NEEDED Status: Active Protocol: Document 06/08/21 10:22 AB (Rec: 06/08/21 12:52 AB [email or web address]) PT Summary Assessment and Plan Potential Rehabilitation Potential Good Summary Impairments Pain,ROM,Strength,Balance, Coordination,Sensation,Tone, Cognition,Bed Mobility, Transfers,Gait,Activity Tolerance Progress Towards Goals Slow Progress due to Medical Issues,Slow Progress due to Activity Tolerance Assessment Summary caregiver training conducted and spouse was able to assist pt safely. pt continues to have (+) L knee buckling but with better control of LLE compared to last eval. pt will require HHPT. pt confirmed that they got a FWW for her to use at home. Goals Bed Mobility Goal Independent Transfer Goal Standby Assistance,Front Wheeled Walker Gait Goal Standby Assistance,Front Wheel Walker Gait Distance 200 Other Goals ambulation using FWW mod I 250 ft up/down 8 steps 1 rail SBA Days to Meet Goals 10 Frequency of Treatment Frequency Of Treatment Once a Day Treatment Plan Physical Therapy Treatment Plan Bed Mobility Training,Transfer Training,Gait Training, Therapeutic Exercise,Balance Retraining,Discharge Planning, Neuromuscular Re-ed, Coordination Retraining,Manual Therapy Precautions Other Precautions falls, BP Recommendations To Nursing Amount of Assist Needed 1 Person Assist Discharge Recommendations PT Discharge Recommendations Acute Rehab Transportation Needs at Discharge Private Vehicle,Wheelchair/ Cabulance
--- NOTE | 2021-06-08 13:42 | OT.IP.TRT ---
Current Diagnoses Cerebral infarction due to unspecified occlusion or stenosis of unspecified cerebral artery (06/05/21) Occupational Therapy Treatment Note M2 OT-IP Current Condition Start: 06/07/21 11:33 Freq: Status: Discharge Protocol: Document 06/07/21 11:33 CCC (Rec: 06/07/21 12:03 CCC [id number]) Occupational Therapy Current Condition Current Condition Evaluation Date 06/07/21 Treatment Diagnosis Right frontal CVA, decreased mobility Diagnosis Onset Date 06/05/21 M3 OT- IP Subjective and Pain Start: 06/07/21 11:33 Freq: Status: Discharge Protocol: Document 06/08/21 14:37 CGR (Rec: 06/08/21 14:42 CGR [id number]) OT- Subjective Occupational Therapy Visit Type Type Progress Note Visit Start Time 13:16 Visit Stop Time 13:42 Total Visit Minutes 26 Notes Pt is preparing for discharge but requests to shower prior to dressing for d/c. OT Pain Assessment Pain When Pain Assessed At Rest Pain Present Pain Present Denied Pain M4 OT- IP ADL's Start: 06/07/21 11:33 Freq: Status: Discharge Protocol: Document 06/08/21 14:37 CGR (Rec: 06/08/21 14:42 CGR [id number]) OT [id number] Comments OT Self-Feeding Comments Not meal time OT ADL-Grooming General Evaluation Grooming Ability Independent Areas Needing Assistance Face Washing Comments OT Grooming Comments seated in shower OT ADL-Oral Care Comments Oral Care Comments not performed OT ADL-Dressing General Eval Upper Body Dressing Ability Independent Lower Body Dressing Ability Independent Areas Needing Assistance Retrieving/Set-up of Clothing Comments OT Dressing Comments Pt dressed fully without assist after shower, socks, underwear, pants, bra and shirt. OT ADL-Toileting General Evaluation Toileting Ability Standby Assistance Comments OT Toileting Comments urination seated on toilet OT ADL-Bathing Bathing Type Bathing Type Shower General Evaluation Bathing Ability Standby Assistance Areas Needing Assistance Retrieving/Setting Up Items Devices Bathing Equipment Hand Held Shower Sprayer, Shower Chair with Arms Comments OT Bathing Comments Pt performed with SBA and no physical help but reminders to perform all tasks possible in seated position for safety. M5 OT- IP IADL's Start: 06/07/21 11:33 Freq: Status: Discharge Protocol: Document 06/07/21 11:33 [facility] (Rec: 06/07/21 12:03 [facility] [id number]) OT-Instrumental Activities of Daily Living Deficits IADL Deficits Identified Deficits Home Safety Awareness Awareness of Need for Assistance at Home Decreased Awareness Ability to Problem Solve Emergency Able to Problem Solve Situations Home Safety Comments Pt able to accurately answer all home safety situations but having difficulty with word finding. Pt states is worse than it usually is for her. Medication Management Medication Management Comments Would be best for her and family to assist for her needs at this time due to decreased memory, problem solving and decreased dynamic balance, an decreased safety awareness. Money Management Money Management Caregiver Provides Assistance Meal Preparation Meal Preparation Comments Would be best for her and family to assist for her needs at this time due to decreased memory, problem solving and decreased dynamic balance, an decreased safety awareness. Interpersonal Communications Professor Interpersonal Communications Professor Comments Would be best for her and family to assist for her needs at this time due to decreased memory, problem solving and decreased dynamic balance, an decreased safety awareness. Driving Driving Concerns Identified Regarding Safety M6 OT- IP Functional Cognition Start: 06/07/21 11:33 Freq: Status: Discharge Protocol: Document 06/07/21 11:33 [facility] (Rec: 06/07/21 12:03 [facility] [id number]) Cognitive Factors Limiting Selfcare Function Cognitive Ability Level of Alertness Alert Patient Orientation Name,Age,Birthday,Month,Date, Year,Day of Week,Place, Situation Attention Span Ability Capable of Focused Attention, Capable of Sustained Attention Ability to Follow Commands Able to Follow One Step Commands Memory Description Short Term Impaired,Working Impaired Safety Awareness Underestimates Need for Assistance Problem Solving Ability Needs Assist to Identify Solutions Executive Function Ability Unable to Filter Distractions, Unable to Organize Plans, Unable to Remember Details Cognitive Tests SLUMS Pr scored 19/30 which implies impaired cognition, dementia ( 1-20). Pt only able to recall 1/5 objects after time passed , pt not able to draw the hour hands on the clock correctly after time given, pt not able to put an x on the triangle, pt able to answer 2/4 questions after paragraph read . Pt tends to try to anticipate what needs to be done versus listening first and then react. Pt is highly distratable. Cognitive Comments Cognitive Assessment Comments Pt scored 128 seconds on [place] Making B and half way through the assessment forgot the directions and needing MAX vc to compplete the assessment. Pt score implied severe impairment for attention span, task switching, speed of processing, executive functioning and mental flexibility. OT- Vision and Hearing OT- Hearing Assessment OT- Hearing Assessment WFL OT- Vision Assessment Visual Acuity Glasses For Reading Occular Pursuits WFL Visual Convergence WFL Visual [place] WFL Diplopia Absent M7 OT- IP Mobility and Balance Start: 06/07/21 11:33 Freq: Status: Discharge Protocol: Document 06/08/21 14:37 CGR (Rec: 06/08/21 14:42 CGR [id number]) OT-Transfer Assessment Sit to and From Stand Sit to and from Stand Standby Assistance Transfers Transfer Ability Standby Assistance Technique Transfer Destination Bed,Bedside Commode,Shower Stall,Toilet Transfer Technique Stand Step Pivot Devices Transfer Assistive Devices Gait Belt,Front Wheeled Walker Comments Mobility Comments mobility around the room OT- Balance Assessment Sitting Balance and Reactions Static Sitting Balance Ability Normal Dynamic Sitting Balance Ability Good M8 OT- IP Objective Assessments Start: 06/07/21 11:33 Freq: Status: Discharge Protocol: Document 06/07/21 11:33 [facility] (Rec: 06/07/21 12:03 CCC [id number]) OT Gross Range of Motion Upper Extremity Range of Motion Assessment Within Functional Limits OT Strength Upper Extremity Strength Assessment Left Impaired OT- Coordination Assessment Upper Extremity Finger to Nose Test Left UE Impaired OT-Muscle Tone Assessment Muscle Tone WNL Yes OT Sensation Assessment Comments Summary Comments Pt states LUE feels heavy and numb able to feel light touch for al of her LUE except for her wrist. Edema Edema Absent Edema Comments Left shoulder and arm noted swollen thoughout, hospitalist notified. M9 OT- IP Assessment and Plan Start: 06/07/21 11:33 Freq: Status: Discharge Protocol: Document 06/08/21 14:37 CGR (Rec: 06/08/21 14:42 CGR [id number]) OT Summary Assessment and Plan Potential Rehabilitation Potential Good Analytic Complexity at Evaluation Moderate Summary OT Impairments Pain,Range of Motion,Strength, Balance,Coordination,Sensation ,Functional Cognition, Functional Mobility,Self- Feeding,Grooming,Dressing, Toileting,Bathing,Toilet Transfers,Shower Transfers, Activity Tolerance Progress Towards Goals Slow Progress due to Medical Issues,Slow Progress due to Activity Tolerance,Slow Progress due to Cognition Assessment Summary Pt presents with increased abilities in regards to cognition, ADLs, mobility and balance. Pt is ready for discharge home. Educated on home safety and dressed for discharge. Goals Self-Feeding Goal Independent Grooming Goal Independent Dressing Goal Independent Toileting Goal Independent Bathing Goal Independent Toilet Transfer Goal Independent Shower Transfer Goal Independent Patient/Caregiver Education Goal Caregiver Independent Assisting Patient Days to Meet Goals 20 Frequency of Treatment Frequency Of Treatment Once a Day Treatment Plan OT Treatment Plan ADL Training,Functional Cognition Training,Functional Mobility,Patient/Family Education,Discharge Planning Discharge Recommendations OT Discharge Recommendations Home with Assistance Home Equipment Needs Shower chair, FWW Transportation Needs at Discharge Private Vehicle
== END 2021-06-08 14:01 | disposition home health service (06) | DRG 64 ==
LOC: ED 16:16 → AC 16:17
PROVIDERS: Nurse Practitioner Family; Admitting Provider Internal Medicine; Emergency Provider Emergency Medicine; PCP Registered Nurse; Referring Provider Emergency Medicine; Visit Provider Internal Medicine
DX: I63.50 Cerebral infarction due to unspecified occlusion or stenosis of unspecified cerebral artery (principal); I21.A1 Myocardial infarction type 2; G81.94 Hemiplegia, unspecified affecting left nondominant side; R82.71 Bacteriuria; R20.0 Anesthesia of skin; R29.706 NIHSS score 6; I10 Essential (primary) hypertension; E11.9 Type 2 diabetes mellitus without complications; Z79.4 Long term (current) use of insulin; Z20.822 Contact with and (suspected) exposure to COVID-19
CPT/HCPCS: 36415; 70450; 70496; 70498; 70551; 78452; 80053; 80061; 80320; 81003; 81015; 82550; 82553; 82962; 83036; 83690; 84443; 84484; 85014; 85018; 85025; 85730; 87077; 87086; 87186; 87635; 93005; 93017; 93306; 96374; 97162; 97167; 97530; 97535; 99285; 99291; C9803; A9502; J0360; J1644; J1815; J2785; Q9967

== ENCOUNTER → 2021-07-24 14:02 | Outpatient (CLI) | payer MEDICARE, SELFPAY ==
[2021-06-05 22:08] VITALS: BMI 27.9
--- NOTE | 2021-07-24 14:04 | DI.US.S_ITS ---
PROCEDURE: US RENAL COMPLETE INDICATIONS: uncontrolled HTN TECHNIQUE: Real-time scanning was performed of the kidneys and bladder, with image documentation. COMPARISON: None. FINDINGS: Kidneys: Kidneys are normal in size. Right kidney measures 10.7 cm long; left kidney measures 11.6 cm long. Right renal cortical thickness is 1.6 cm; left renal cortical thickness is 1.4 cm. Renal cortical echotexture is normal. No hydronephrosis or nephrolithiasis. No suspicious solid mass lesions. Bilateral renal cyst measuring up to 18 mm on the right and 26 mm on the left. Bladder: Urinary bladder decompressed and suboptimally visualized. Miscellaneous: No free pelvic fluid. IMPRESSION: Bilateral renal cysts; otherwise normal appearance of the kidneys. Dictated by: Eliu Figueroa [facility] Interpreted: Suzy Adames MD on 07/24/2021 at 14:36 Transcribed by: [email or web address] on 07/24/2021 at 14:37 Approved by: Suzy Adames M.D. on 07/24/2021 at 15:22
== END ==
PROVIDERS: PCP Registered Nurse; Referring Provider Registered Nurse; Visit Provider Registered Nurse
DX: I10 Essential (primary) hypertension (principal); N28.1 Cyst of kidney, acquired
CPT/HCPCS: 76770

== ENCOUNTER → 2021-07-29 14:01 | Outpatient (CLI) | payer MEDICARE, SELFPAY ==
[2021-06-05 22:08] VITALS: BMI 27.9
== END ==
PROVIDERS: PCP Registered Nurse; Referring Provider Registered Nurse; Visit Provider Registered Nurse
DX: M81.0 Age-related osteoporosis without current pathological fracture (principal); Z78.0 Asymptomatic menopausal state; E11.9 Type 2 diabetes mellitus without complications
CPT/HCPCS: 77080

== ENCOUNTER 2025-05-03 16:46 | Emergency (ER) | payer MEDICARE, SELFPAY ==
[2021-06-05 22:08] VITALS: BMI 27.9
[2025-05-03] VITALS (7 sets, daily range): BP systolic 133–180; BP diastolic 68–83; PULSE 81–86; RESP 18; TEMP 37.1; O2SAT 98–100; BMI 28.0
--- NOTE | 2025-05-03 17:12 | ED_ITS ---
HPI - Female Genitourinary <Alessandro Woody, DO - Last Filed: 05/03/25 17:57> General Chief complaint: Urogenital-Female Stated complaint: Pelvic Pain, Chills, Back pain, Urinary symptoms Time Seen by Provider: 05/03/25 17:05 Source: patient Mode of arrival: Ambulatory History of Present Illness HPI Narrative: 69-year-old female history of hypertension, type 2 diabetes, CVA Related Data Home Medications ?Medication ?Instructions ?Recorded ?Confirmed amlodipine 5 mg tablet 5 mg PO BID HTN 12/30/21 Held on 11/25/22. Instructions: ESTABLISHED ELSEWHERE metoprolol succinate 100 mg 100 mg PO BID 12/30/21 tablet,extended release 24 hr Held on 11/25/22. Instructions: ESTABLISHED ELSEWHERE Previous Rx's ?Medication ?Instructions ?Recorded atorvastatin 20 mg tablet (Lipitor) 80 mg (4 x 20 mg) PO BEDTIME #30 06/08/21 Held on 11/25/22. tabs Instructions: ESTABLISHED ELSEWHERE Continuous glucometer monitoring #1 ea 06/13/21 device Held on 11/25/22. Instructions: ESTABLISHED ELSEWHERE Sensors #1 ea 06/24/21 Held on 11/25/22. Instructions: ESTABLISHED ELSEWHERE flash glucose scanning reader #1 ea 06/28/21 (Crisp Jeanette 14 Day Bradley) Held on 11/25/22. Instructions: ESTABLISHED ELSEWHERE aspirin 81 mg tablet,delayed 81 mg PO DAILY #90 tabs 0 07/05/21 release Held on 11/25/22. Instructions: ESTABLISHED ELSEWHERE losartan 50 mg tablet 100 mg (2 x 50 mg) PO DAILY #90 07/05/21 Held on 11/25/22. tabs Instructions: ESTABLISHED ELSEWHERE pantoprazole 40 mg tablet,delayed 40 mg PO DAILY@0700 #30 tabs 07/05/21 release Held on 11/25/22. Instructions: ESTABLISHED ELSEWHERE clopidogrel 75 mg tablet (Plavix) 75 mg PO DAILY #90 t abs 10/07/21 Held on 11/25/22. Instructions: ESTABLISHED ELSEWHERE hydrochlorothiazide 25 mg tablet 25 mg PO DAILY #90 ta bs 10/07/21 Held on 11/25/22. Instructions: ESTABLISHED ELSEWHERE insulin glargine 100 unit/mL (3 20 unit (0.2 mL) SUBCU T QPM #15 mL 01/11/22 mL) subcutaneous pen (Lantus Solostar U-100 Insulin) Held on 11/25/22. Instructions: ESTABLISHED ELSEWHERE flash glucose sensor (FreeStyle #1 ea 12/23/21 Jeanette 14 Day Sensor kit) Held on 11/25/22. Instructions: ESTABLISHED ELSEWHERE Accu-check #270 ea 01/03/22 Held on 11/25/22. Instructions: ESTABLISHED ELSEWHERE liraglutide 0.6 mg/0.1 mL (18 mg/3 See Rx Instructions .Route 04/10/22 mL) subcutaneous pen injector .COMPLEX #6 mL (Victoza 2-Nishant) Held on 11/25/22. Instructions: ESTABLISHED ELSEWHERE insulin lispro 100 unit/mL 15 unit (0.15 mL) SUBCUT TI D #15 mL 09/26/22 subcutaneous pen Held on 11/25/22. Instructions: ESTABLISHED ELSEWHERE cefdinir 300 mg capsule 300 mg PO BID #14 caps 05/03 Allergies Allergy/AdvReac Type Severity Reaction Status Date / Time metformin Allergy Intermediate diarrheas Verified 12/30/21 11:53 Penicillins Allergy Unknown Verified 12/30/21 11:53 <Marilee Garzon MD - Last Filed: 05/03/25 19:29> History of Present Illness HPI Narrative: 69-year-old female history of hypertension, type 2 diabetes, CVA, coronary artery disease who presents with right-sided back pain, lower abdominal pain, dysuria for a week, nausea chills. Review of Systems <Alessandro Woody DO - Last Filed: 05/03/25 17:57> Review of Systems ROS Unobtainable: All systems reviewed & are unremarkable except as noted in HPI and below Patient History <Alessandro Woody DO - Last Filed: 05/03/25 17:57> Medical History Bilateral arm pain Essential hypertension Ingrown nail Screening for malignant neoplasm of colon Type 2 diabetes mellitus Weakness Family History Mother Cancer Father Cardiac arrest Exam <Alessandro Woody DO - Last Filed: 05/03/25 17:57> Narrative Exam Narrative: GENERAL: [69] year old patient appears stated age. Well-developed patient, in mild distress. HEAD: Atraumatic. Normocephalic. EYES: Pupils equal round and reactive. Extraocular motions intact. No scleral icterus. No injection or drainage. NECK: Trachea midline. Non tender CARDIOVASCULAR: Regular rate and rhythm without murmurs, gallops, or rubs. RESPIRATORY: Clear to auscultation. Breath sounds equal bilaterally. No wheezes, rales, or rhonchi. GASTROINTESTINAL: Abdomen soft, RLQ tender, nondistended. EXTREMITIES: No edema or joint tenderness. BACK: Nontender without deformity or crepitance. No flank tenderness. NEURO: AOx3. SKIN: No rash or erythema of visible areas Initial Vital Signs Initial Vital Signs: Vital Signs Temperature 98.8 F 05/03/25 16:55 Pulse Rate 86 05/03/25 16:55 Respiratory Rate 18 05/03/25 16:55 Blood Pressure 133/78 05/03/25 16:55 Pulse Oximetry 100 05/03/25 16:55 Oxygen Delivery Method Room Air 05/03/25 16:55 <Marilee Garzon MD - Last Filed: 05/03/25 19:29> Initial Vital Signs Initial Vital Signs: Vital Signs Temperature 98.8 F 05/03/25 16:55 Pulse Rate 86 05/03/25 16:55 Respiratory Rate 18 05/03/25 16:55 Blood Pressure 133/78 05/03/25 16:55 Pulse Oximetry 100 05/03/25 16:55 Oxygen Delivery Method Room Air 05/03/25 16:55 Course <Alessandro Woody DO - Last Filed: 05/03/25 17:57> Orders Ordered: ED Orders 05/03/25 17:00 Urinalysis and Microscopic Stat Urine Culture Stat 05/03/25 17:19 CT abdomen pelvis w con Stat 05/03/25 17:30 Complete Blood Count AUTO DIFF Stat Comprehensive Metabolic Panel Stat Lipase Stat Discontinued Medications Lactated Ringer's (Lactated Ringers) 1,000 mls @ 1,000 mls/hr IV BOLUS ONE Stop: 05/03/25 18:18 Last Admin: 05/03/25 17:36 Dose: 1,000 mls/hr Documented By: CTS Ceftriaxone Sodium 1,000 mg/ (Sodium Chloride) 100 mls @ 200 mls/hr IV NOW ONE Stop: 05/03/25 17:56 Last Infusion: 05/03/25 18:41 Dose: Infused Documented By: Admin: 05/03/25 18:05 Dose: 200 mls/hr Documented By: LARISSA Ketorolac Tromethamine (Ketorolac 30 Mg/Ml Vial) 30 mg IV NOW ONE Stop: 05/03/25 17:19 Last Admin: 05/03/25 17:36 Dose: 30 mg Documented By: KEO Vital Signs Vital signs: Vital Signs - 8 hr 05/03/25 16:55 05/03/25 17:29 05/03/25 17:30 Temperature 98.8 F Pulse Rate 86 83 82 Respiratory Rate 18 Blood Pressure 133/78 Pulse Oximetry 100 98 98 Oxygen Delivery Method Room Air 05/03/25 17:46 05/03/25 17:46 05/03/25 18:00 Temperature Pulse Rate 86 86 Respiratory Rate Blood Pressure 162/72 H Pulse Oximetry 98 100 Oxygen Delivery Method 05/03/25 18:00 05/03/25 18:30 05/03/25 18:30 Temperature Pulse Rate 83 Respiratory Rate Blood Pressure 157/70 H 158/68 H Pulse Oximetry 99 Oxygen Delivery Method <Marilee Garzon MD - Last Filed: 05/03/25 19:29> Orders Ordered: ED Orders 05/03/25 17:00 Urinalysis and Microscopic Stat Urine Culture Stat 05/03/25 17:19 CT abdomen pelvis w con Stat 05/03/25 17:30 Complete Blood Count AUTO DIFF Stat Comprehensive Metabolic Panel Stat Lipase Stat Discontinued Medications Lactated Ringer's (Lactated Ringers) 1,000 mls @ 1,000 mls/hr IV BOLUS ONE Stop: 05/03/25 18:18 Last Admin: 05/03/25 17:36 Dose: 1,000 mls/hr Documented By: KEO Ceftriaxone Sodium 1,000 mg/ (Sodium Chloride) 100 mls @ 200 mls/hr IV NOW ONE Stop: 05/03/25 17:56 Last Infusion: 05/03/25 18:41 Dose: Infused Documented By: Admin: 05/03/25 18:05 Dose: 200 mls/hr Documented By: LARISSA Ketorolac Tromethamine (Ketorolac 30 Mg/Ml Vial) 30 mg IV NOW ONE Stop: 05/03/25 17:19 Last Admin: 05/03/25 17:36 Dose: 30 mg Documented By: CTS Vital Signs Vital signs: Vital Signs - 8 hr 05/03/25 16:55 05/03/25 17:29 05/03/25 17:30 Temperature 98.8 F Pulse Rate 86 83 82 Respiratory Rate 18 Blood Pressure 133/78 Pulse Oximetry 100 98 98 Oxygen Delivery Method Room Air 05/03/25 17:46 05/03/25 17:46 05/03/25 18:00 Temperature Pulse Rate 86 86 Respiratory Rate Blood Pressure 162/72 H Pulse Oximetry 98 100 Oxygen Delivery Method 05/03/25 18:00 05/03/25 18:30 05/03/25 18:30 Temperature Pulse Rate 83 Respiratory Rate Blood Pressure 157/70 H 158/68 H Pulse Oximetry 99 Oxygen Delivery Method MDM - Female Genitourinary <Alessandro Woody, DO - Last Filed: 05/03/25 17:57> Lab Data 05/03/25 17:30 05/03/25 17:30 Labs: Lab Results 05/03/25 05/03/25 Range/Units 17:00 17:30 WBC 11.0 (4.5-11.0) X10^3/uL RBC 3.63 L (4.0-5.2) X10^6/uL Hgb 11.5 L (12.0-16.0) g/dL Hct 33.9 L (36-46) % MCV 93.5 (80-100) fL MCH 31.6 (26-34) PG MCHC 33.8 (30-36) % RDW 13.5 (11.6-14.8) % Plt Count 231 (150-400) X10^3/uL Neut % (Auto) 87.7 H (50-75) % Lymph % (Auto) 5.2 L (25-40) % [place] % (Auto) 6.0 (3-14) % Eos % (Auto) 0.7 L (2-4) % Baso % (Auto) 0.4 (0-2) % Neut # (Auto) 9700 H (6149-7554) /uL Lymph # (Auto) 600 L (9232-0695) /uL [place] # (Auto) 700 (0-900) /uL Eos # (Auto) 100 (0-450) /uL Baso # (Auto) 0 (0-100) /uL Sodium 140 (137-145) mmol/L Potassium 3.5 (3.4-5.1) mmol/L Chloride 107 (98-107) mmol/L Carbon Dioxide 28 (22-32) mmol/L BUN 22 H (7-17) mg/dL Creatinine 1.22 H (0.52-1.04) mg/dL Estimated GFR 48 L (>60) mL/min BUN/Creatinine Ratio 18.0 (6-22) Glucose 90 (70-99) mg/dL Calcium 9.1 (8.4-10.2) mg/dL Total Bilirubin 0.6 (0.2-1.3) mg/dL AST 56 H (14-36) IU/L ALT 45 H (<35) IU/L Alkaline Phosphatase 150 H (38-126) U/L Total Protein 7.0 (6.3-8.2) g/dL Albumin 4.0 (3.5-5.0) g/dL Globulin 3.0 (1.7-4.1) g/dL Albumin/Globulin Ratio 1.3 (1.0-2.8) Lipase 53 (23-300) U/L Urine Color [place] Urine Appearance Cloudy Urine pH 5.0 (4.5-8.0) Ur Specific [place] 1.010 (1.000-1.035) Urine Protein 2+ H (Negative) Urine Glucose (UA) 1+ H (Negative) g/dL Urine Ketones Trace H (NEGATIVE) Urine Occult Blood 2+ H (Negative) Urine Nitrate Positive H (Negative) Urine Bilirubin Negative (NEGATIVE) Urine Urobilinogen 4.0 H (0.2) E.U./dL Ur Leukocyte Esterase 2+ H (NEGATIVE) Urine RBC 5-10/hpf H (0-5/HPF) Urine WBC 5-10/hpf H (0-5/HPF) Ur Squamous Epith Cells 0-1 /hpf (0-5/HPF) Urine Bacteria Many (>30) H (None) Ur Culture Indicated? Specimen cultured Vol Urine Centrifuged 10ml (spun) MDM Narrative Medical decision making narrative: UA reviewed positive nitrites positive leukocytes 5-10 RBC 5-10 WBC and bacteria. Patient given lactated ringer 1 L bolus Toradol and Rocephin here. <Marilee Garzon MD - Last Filed: 05/03/25 19:29> Lab Data Labs: Lab Results 05/03/25 05/03/25 Range/Units 17:00 17:30 WBC 11.0 (4.5-11.0) X10^3/uL RBC 3.63 L (4.0-5.2) X10^6/uL Hgb 11.5 L (12.0-16.0) g/dL Hct 33.9 L (36-46) % MCV 93.5 (80-100) fL MCH 31.6 (26-34) PG MCHC 33.8 (30-36) % RDW 13.5 (11.6-14.8) % Plt Count 231 (150-400) X10^3/uL Neut % (Auto) 87.7 H (50-75) % Lymph % (Auto) 5.2 L (25-40) % [place] % (Auto) 6.0 (3-14) % Eos % (Auto) 0.7 L (2-4) % Baso % (Auto) 0.4 (0-2) % Neut # (Auto) 9700 H (2535-7068) /uL Lymph # (Auto) 600 L (3535-9629) /uL [place] # (Auto) 700 (0-900) /uL Eos # (Auto) 100 (0-450) /uL Baso # (Auto) 0 (0-100) /uL Sodium 140 (137-145) mmol/L Potassium 3.5 (3.4-5.1) mmol/L Chloride 107 (98-107) mmol/L Carbon Dioxide 28 (22-32) mmol/L BUN 22 H (7-17) mg/dL Creatinine 1.22 H (0.52-1.04) mg/dL Estimated GFR 48 L (>60) mL/min BUN/Creatinine Ratio 18.0 (6-22) Glucose 90 (70-99) mg/dL Calcium 9.1 (8.4-10.2) mg/dL Total Bilirubin 0.6 (0.2-1.3) mg/dL AST 56 H (14-36) IU/L ALT 45 H (<35) IU/L Alkaline Phosphatase 150 H (38-126) U/L Total Protein 7.0 (6.3-8.2) g/dL Albumin 4.0 (3.5-5.0) g/dL Globulin 3.0 (1.7-4.1) g/dL Albumin/Globulin Ratio 1.3 (1.0-2.8) Lipase 53 (23-300) U/L Urine Color [place]agan Urine Appearance Cloudy Urine pH 5.0 (4.5-8.0) Ur Specific [place] 1.010 (1.000-1.035) Urine Protein 2+ H (Negative) Urine Glucose (UA) 1+ H (Negative) g/dL Urine Ketones Trace H (NEGATIVE) Urine Occult Blood 2+ H (Negative) Urine Nitrate Positive H (Negative) Urine Bilirubin Negative (NEGATIVE) Urine Urobilinogen 4.0 H (0.2) E.U./dL Ur Leukocyte Esterase 2+ H (NEGATIVE) Urine RBC 5-10/hpf H (0-5/HPF) Urine WBC 5-10/hpf H (0-5/HPF) Ur Squamous Epith Cells 0-1 /hpf (0-5/HPF) Urine Bacteria Many (>30) H (None) Ur Culture Indicated? Specimen cultured Vol Urine Centrifuged 10ml (spun) Imaging Data CT scan - abdomen/pelvis: Radiologist's Impression: PROCEDURE: CT ABDOMEN PELVIS W CON INDICATIONS: right sided abdominal pain TECHNIQUE: After the administration of intravenous contrast, axial sections acquired from the lung bases to the pubic symphysis. Coronal and sagittal reformats were performed. For radiation dose reduction, the following was used: automated exposure control, adjustment of mA and/or kV according to patient size. COMPARISON: None. FINDINGS: Image quality: Diagnostic Lower chest: Unremarkable lung bases. Mild wall thickening of the distal esophagus partially visualized Liver: Unremarkable Gallbladder and biliary system: Cholecystectomy clips, nondilated Pancreas: No ductal dilation Spleen: Nonenlarged Adrenals: Bilateral thickening, moderate on the left Kidneys: Multiple renal cysts. There is heterogeneous enhancement of the cortex bilaterally, more obvious on the left. No hydronephrosis. Vessels and lymph nodes: There are prominent left retroperitoneal lymph nodes, none enlarged by size criteria. The main portal vein is patent. No abdominal aortic aneurysm. Bowel and peritoneum: Wall thickening is seen of the distal stomach. Increased fecal loading including a rectal stool ball. No drainable abscess or ascites. Nondilated appendix. Body wall: Small rectus diastasis. Pelvis: Under distended urinary bladder, but with wall thickening. The uterus is absent Bones: No aggressive appearing osseous abnormality. There are degenerative osseous changes. IMPRESSION: Bladder wall thickening and heterogeneous cortical renal enhancement, more on the left. Correlate urinalysis for any infection. Following clinical treatment, consider renal ultrasound to ensure there is no focal mass. Multiple renal cysts are present. Wall thickening also seen at the distal stomach and distal esophagus which may represent gastritis versus ulcer disease and esophagitis. Endoscopy can further evaluate if clinically necessary. There is increased colonic fecal loading. Normal diameter appendix. No small bowel obstruction. Other findings above. Dictated by: Kishore Sinclair M.D. 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 Pertinent findings: CBC does not show leukocytosis, white count is 11 however she does have a left shift at 87.7. Mild stable anemia with hemoglobin at 11.5. Chemistries show mild renal insufficiency with a GFR 48, creatinine of 1.22. Mild elevation to AST ALT and alk-phos 56, 45 and 150 respectively Lipase is unremarkable Imaging studies independently reviewed: CT scan shows Bladder wall thickening and heterogeneous cortical renal enhancement, more on the left. Correlate urinalysis for any infection. Treatments: 30 mg of Toradol, 1 L of LR and 1 g of ceftriaxone IV Discussion: Initial exam and orders per Dr. Woody. Care is assumed, patient is independently evaluated, labs reviewed Findings are most consistent with urinary tract infection without sepsis or pyelonephritis or obstruction. She states she does have bowel movements regularly has not been particularly constipated and is not having significant abdominal pain or distention. She states that she has not had any recent urinary tract infections, the last was a number of years ago. She is having discomfort that has been moderately controlled with Tylenol. With shared decision-making she declined any narcotics and I believe nonsteroidals are going to be inappropriate given her kidney disease. Prescription for cefdinir is sent to [facility] for 5 additional days to complement the additional gm of ceftriaxone given in the emergency department. Reviewed reasons to return to the emergency department and anticipated course recovery. There was no indication for hospitalization and she is safe for discharge Discharge Plan Departure Patient Disposition: Home Clinical Impression: Acute pyelonephritis Urinary tract infection Qualifiers: Urinary tract infection type: acute cystitis Hematuria presence: with hematuria Qualified Code(s): N30.01 - Acute cystitis with hematuria Instructions: DI for Kidney Infection, DI for Urinary Tract Infection (UTI) Activity Restrictions/Additional Instructions: Thank you for coming in today You clearly have a bladder infection and your CT scan suggests that your left kidney is starting to look a little inflamed. There was no evidence of blockage of the kidneys, internal abscess, sepsis or reason for hospitalization today I am very glad you came in today, waiting until tomorrow would have been too long. You were given a dose of the antibiotics in the emergency department. I am sending a prescription for 7 more days of cefdinir, a non penicillin antibiotic to [facility] in [place] for you to start tomorrow. You can use Tylenol for pain control. You should be significantly improved by tomorrow evening. If you are feeling worse, having increasing abdominal pain fevers or vomiting do need to return to the ER Prescriptions: New cefdinir 300 mg capsule 300 mg PO BID Qty: 14 0RF No Action (DME) Sensors See Rx Instructions .Route .MEDSUPPLY Qty: 1 0RF Rx Instructions: As directed (DME) FreeStyle Jeanette 14 Day Bradley Misc See Rx Instructions .Route Qty: 1 6RF Rx Instructions: As directed hydrochlorothiazide 25 mg tablet 25 mg PO DAILY Qty: 90 0RF clopidogrel [Plavix] 75 mg tablet 75 mg PO DAILY Qty: 90 0RF Lantus Solostar U-100 Insulin 100 unit/mL (3 mL) insulin pen 20 unit SUBCUT QPM Qty: 15 2RF (DME) FreeStyle Jeanette 14 Day Sensor Kit See Rx Instructions .ROUTE .COMPLEX Qty: 1 12RF Dose Instruction: USE DIRECTED Rx Instructions: USE DIRECTED Victoza 2-Nishant 0.6 mg/0.1 mL (18 mg/3 mL) pen injector See Rx Instructions .ROUTE .COMPLEX Qty: 6 5RF Dose Instruction: INJECT 1.2 MG (0.2 ML) SUBCUTANEOUSLY ONCE DAILY FOR DIABETES Rx Instructions: INJECT 1.2 MG (0.2 ML) SUBCUTANEOUSLY ONCE DAILY FOR DIABETES insulin lispro 100 unit/mL insulin pen 15 unit SUBCUT TID Qty: 15 11RF (DME) Continuous glucometer monitoring device See Rx Instructions .Route .MEDSUPPLY Qty: 1 0RF Rx Instructions: As directed amlodipine 5 mg tablet 5 mg PO BID metoprolol succinate 100 mg tablet extended release 24 hr 100 mg PO BID (DME) Accu-check See Rx Instructions .Route .MEDSUPPLY Qty: 270 0RF Rx Instructions: check BS TID before meals for type 2 diabetes, on insulin med. aspirin 81 mg tablet,delayed release (DR/EC) 81 mg PO DAILY Qty: 90 0RF losartan 50 mg tablet 100 mg PO DAILY Qty: 90 0RF pantoprazole 40 mg tablet,delayed release (DR/EC) 40 mg PO DAILY@0700 Qty: 30 1RF atorvastatin [Lipitor] 20 mg Tablet 80 mg PO BEDTIME Qty: 30 0RF Stand Alone Forms: Patient Portal/API
--- NOTE | 2025-05-03 17:19 | DI.CT.S_ITS ---
PROCEDURE: CT ABDOMEN PELVIS W CON INDICATIONS: right sided abdominal pain TECHNIQUE: After the administration of intravenous contrast, axial sections acquired from the lung bases to the pubic symphysis. Coronal and sagittal reformats were performed. For radiation dose reduction, the following was used: automated exposure control, adjustment of mA and/or kV according to patient size. COMPARISON: None. FINDINGS: Image quality: Diagnostic Lower chest: Unremarkable lung bases. Mild wall thickening of the distal esophagus partially visualized Liver: Unremarkable Gallbladder and biliary system: Cholecystectomy clips, nondilated Pancreas: No ductal dilation Spleen: Nonenlarged Adrenals: Bilateral thickening, moderate on the left Kidneys: Multiple renal cysts. There is heterogeneous enhancement of the cortex bilaterally, more obvious on the left. No hydronephrosis. Vessels and lymph nodes: There are prominent left retroperitoneal lymph nodes, none enlarged by size criteria. The main portal vein is patent. No abdominal aortic aneurysm. Bowel and peritoneum: Wall thickening is seen of the distal stomach. Increased fecal loading including a rectal stool ball. No drainable abscess or ascites. Nondilated appendix. Body wall: Small rectus diastasis. Pelvis: Under distended urinary bladder, but with wall thickening. The uterus is absent Bones: No aggressive appearing osseous abnormality. There are degenerative osseous changes. IMPRESSION: Bladder wall thickening and heterogeneous cortical renal enhancement, more on the left. Correlate urinalysis for any infection. Following clinical treatment, consider renal ultrasound to ensure there is no focal mass. Multiple renal cysts are present. Wall thickening also seen at the distal stomach and distal esophagus which may represent gastritis versus ulcer disease and esophagitis. Endoscopy can further evaluate if clinically necessary. There is increased colonic fecal loading. Normal diameter appendix. No small bowel obstruction. Other findings above. Dictated by: Kishore Sinclair M.D. on 05/03/2025 at 18:07 Approved by: Kishore Sinclair M.D. on 05/03/2025 at 18:12
[2025-05-03 17:21] LABS: Appearance Urine UA CLOUDY; Bilirubin Urine UA NEGATIVE (NEGATIVE); Color Urine UA ORANGE; Glucose Urine UA 1+ g/dL (Negative); Ketones Urine UA TRACE (NEGATIVE); Leukocyte Esterase Urine UA 2+ (NEGATIVE); Nitrite Urine UA POSITIVE (Negative); Occult Blood Urine UA 2+ (Negative); Protein Urine UA 2+ (Negative); Specific Gravity Urine UA 1.010 (1.000-1.035); Urobilinogen Urine UA 4.0 E.U./dL (0.2)
[2025-05-03] MEDS: LACTATED RINGERS 1,000 ML 1000 ML IV (17:36)
[2025-05-03] MEDS: KETOROLAC 30 MG/ML VIAL IV (17:36)
[2025-05-03 17:40] LABS: pH Urine UA 5.0 (4.5-8.0)
[2025-05-03 17:47] LABS: Culture Indicated Urine Specimen Cultured
[2025-05-03 17:49] LABS: Add Manual Diff / Slide Review NO; Hematocrit 33.9 % (36-46); Hemoglobin 11.5 g/dL (12.0-16.0); Lymphocytes Absolute Auto 600 /uL (1100-4500); Mean Corpuscular HGB Conc 33.8 % (30-36); Mean Corpuscular Hemoglobin 31.6 PG (26-34); Mean Corpuscular Volume 93.5 fL (80-100); Platelet Count 231 X10^3/uL (150-400)
[2025-05-03 18:02] LABS: Alanine Aminotransferase 45 IU/L (<35); Albumin 4.0 g/dL (3.5-5.0); Albumin Globulin Ratio 1.3 (1.0-2.8); Alkaline Phosphatase 150 U/L (38-126); Blood Urea Nitrogen 22 mg/dL (7-17); Calcium 9.1 mg/dL (8.4-10.2); Carbon Dioxide 28 mmol/L (22-32); Chloride 107 mmol/L (98-107); Estimated Glomerular Filt Rate 48 mL/min (>60); Globulin 3.0 g/dL (1.7-4.1); Glucose 90 mg/dL (70-99); HEMOLYSIS < 15 (0-50); Lipase 53 U/L (23-300); Potassium 3.5 mmol/L (3.4-5.1); Sodium 140 mmol/L (137-145); Total Protein 7.0 g/dL (6.3-8.2)
--- NOTE | 2025-05-03 18:42 | PC.NURSE ---
patient states her glucose is reading 56, asked for juice, offered yogurt, patient agreeable, dr. eubanks notified.
== END 2025-05-03 19:43 | disposition home or self-care (01) ==
PROVIDERS: Family Medicine; Emergency Provider Emergency Medicine
DX: N10 Acute pyelonephritis (principal); N30.01 Acute cystitis with hematuria; M54.9 Dorsalgia, unspecified
CPT/HCPCS: 36415; 74177; 80053; 81001; 83690; 85025; 87077; 87086; 87186; 96365; 96375; 99284; J0696; J1885; Q9967